=== PATIENT | male | born 1945 | race Caucasian/White ===

== ENCOUNTER → 2017-01-11 13:13 | Outpatient (CLI) | payer MEDICARE, OTHER | END | disposition home or self-care (01) | LOC: D.CT 13:13 | DX: J32.9 Chronic sinusitis, unspecified (principal) ==

== ENCOUNTER 2017-02-23 08:03 | Day surgery (SDC) | payer MEDICARE, OTHER ==
[~2017-02-23] VITALS: Ht 188 cm; Wt 109.1 kg
--- NOTE | ~2017-02-23 | OP ---
PATIENT NAME: BLAKE MICHELLE EDD MEDICAL RECORD: [id number] :45 LOCATION:[facility] ADMISSION DATE: SURGEON: SERGEI CID MD DATE OF OPERATION: 02/23/2017 PREOPERATIVE DIAGNOSES: Right chronic maxillary sinusitis, hypoplastic sinus with refractory sinusitis. POSTOPERATIVE DIAGNOSES: Right chronic maxillary sinusitis, hypoplastic sinus with refractory sinusitis. PROCEDURE: Right middle meatal antrostomy. SURGEON: Sergei Cid MD. ANESTHESIA: General orotracheal. BLOOD LOSS: 2 cc. SPECIMENS: Cultures from the right maxillary sinus. COMPLICATIONS: None. DISPOSITION: Recovery stable. NASAL PACKING: None. DESCRIPTION OF PROCEDURE: He was brought to the operating room and placed in supine position, sedated and intubated by anesthesia. The table was turned 90 degrees. A head drape was applied. He was positioned, prepped and draped in usual fashion for nasal surgery. Using a headlight and nasal speculum, the lateral nasal wall was really severely retracted laterally. The root of the middle turbinate, inferior turbinate and lateral nasal wall, floor of the nose were injected with a total of 1 cc of 1% lidocaine with 1:100,000 epinephrine. Afrin pledgets were placed in the right side of the nose. Then, after waiting for decongestion, all the Afrin pledgets were removed. The left side of the nose was examined first with a 0-degree scope, there are masses, polyps or lesions. Inferior and middle turbinates, nasal vault and nasopharynx were normal. The right side was examined. He had a normal inferior turbinate and then above that, the entire lateral nasal wall was just collapsed completely and then there was normal middle turbinate as well. The nasal vault and nasopharynx were normal. The uncinate was visible and could be moved medially a little bit with a curved olive-tip suction, but I entered the maxillary sinus just above the inferior turbinate to get into the sinus itself again into a plane where, because there was really almost no space there, dissected that open, got some cultures on some purulent secretions and then took down a large portion of that lateral nasal wall, exposing the maxillary sinus. I left some of the uncinate intact and did not disturb any of the sinuses, just opened up that maxillary sinus completely, got in there, rinsed it out repeatedly with a 60 cc syringe and a large curved olive-tip suction. Then, with the field clean and dry, I used a curved olive-tip suction and filled that maxillary sinus inferiorly with mupirocin ointment. I suctioned out the nasopharynx, examined the area again, and he was awakened, extubated, and transported to recovery in good condition. No complications. OPERATIVE REPORT [id number] BLAKE MICHELLE EDD TRANSINT:[id number] Voice Confirmation ID: [id number] DOCUMENT ID: [id number] SERGEI CID MD CC: [id number] DICTATION DATE: 02/23/17 1217 HACK SAW OPERATOR: 02/23/17 1325 REG [facility] [address] [id number]
--- NOTE | ~2017-02-23 | HP ---
PATIENT: BLAKE MICHELLE EDD MEDICAL RECORD: [id number] ACCOUNT: [id number] LOCATION:[facility] : 45 ADMISSION DATE: 02/23/17 HISTORY AND PHYSICAL EXAMINATION Preoperative History and Physical HISTORY OF PRESENT ILLNESS: Blake is a 71-year-old male with chronic right maxillary sinus disease. He is being admitted for right middle meatal antrostomies. PAST MEDICAL HISTORY: Includes reflux. PAST SURGICAL HISTORY: None. CURRENT MEDICATIONS: Orencia, Voltaren, Zantac, Prilosec, and Plaquenil. ALLERGIES: No known drug allergies. PHYSICAL EXAMINATION: GENERAL: Healthy-appearing male. FACE: Normal, symmetric, no lesions. EYES: Sclerae and conjunctivae are normal. EARS: Canals and TMs are normal. NOSE: No mass, polyps or drainage. ORAL CAVITY AND OROPHARYNX: Tongue protrudes in midline. Pharynx normal. NECK: No masses, no adenopathy. CHEST: Clear. CARDIOVASCULAR: Regular rate and rhythm, no murmur. EXTREMITIES: Normal. DIAGNOSTIC DATA: CT shows a hypoplastic right maxillary sinus. IMPRESSION: A hypoplastic right maxillary sinus with chronic sinusitis, refractory to medical management. PLAN: Right middle meatal antrostomy. TRANSINT:[id number] Voice Confirmation ID: [id number] DOCUMENT ID: [id number] CRISTIANA ICD MD CC: [id number] DICTATION DATE: 02/21/17 1355 BSW: 02/21/17 1450 PRE [facility] [address] [place] [address]
[~2017-02-23 08:03] MED LIST: EFFEXOR75 MG PO; NALFON400 MG PO; PLAQUENIL200 MG PO
[2017-02-23 08:47] LABS: HEMATOCRIT 42.1 % (42.0-54.0); HEMOGLOBIN 14.6 g/dL (13.5-17.5); MCHC 34.7 g/dL (31.0-37.0); MCV 97.9 fL (80.0-100.0); MEAN PLATELET VOLUME 10.4 fL (7.4-10.4); RBC 4.3 10x6/uL (4.20-6.10); RDW 13.5 % (11.5-14.5); WBC 5.7 10x3/uL (4.8-10.8)
[2017-02-23] MEDS ORDERED: HYDROCODON-ACE1 EAC7 PO (09:40)
[2017-02-23] MEDS ORDERED: OMEPRAZOLE40 MG PO (09:40)
[2017-02-23] MEDS ORDERED: AMBIEN10 MG PO (09:41)
[2017-02-23] MEDS ORDERED: ZANTAC150 MG PO (09:42)
[2017-02-23] MEDS ORDERED: ORENCIA250 MG/10 IV (09:42)
[2017-02-23] MEDS ORDERED: METAMUCIL PACKE1 PKT PO (09:43)
[2017-02-23] MEDS ORDERED: EZFE 200200 MG PO (09:43)
[2017-02-23] MEDS ORDERED: FLAXSEED OIL1000 MG PO (09:44)
[2017-02-23] MEDS ORDERED: MIRALAX17 GM PO (09:44)
[2017-02-23] MEDS ORDERED: POTASSIUM99 M1 PO (09:44)
[2017-02-23] MEDS ORDERED: VITAMIN B-1000 MCG/M IM (09:45)
[2017-02-23 09:57] VITALS: BP 135/75; Ht 188 cm; Wt 109.1 kg
[2017-02-27 17:12] LABS: AEROBE ID Preliminary report (())
== END 2017-02-23 14:40 | disposition home or self-care (01) ==
LOC: D.OPS 08:03 → D.PAN 10:55 → D.OPS 12:15
PROVIDERS: Anesthesiology; Otolaryngology
DX: J32.0 Chronic maxillary sinusitis (principal); J32.8 Other chronic sinusitis; Z01.812 Encounter for preprocedural laboratory examination

== ENCOUNTER 2018-08-14 11:48 | Outpatient (CLI) | payer MEDICARE, OTHER ==
[~2018-08-14] VITALS: Ht 188 cm; Wt 106.8 kg
--- NOTE | ~2018-08-14 | HEMODYNAMI ---
PATIENT:BLAKE MICHELLE FER MEDICAL RECORD: [id number] : 45 LOCATION:[facility] ADMISSION DATE: 08/14/18 Generatedon:08/14/201814:47 Patient name: BLAKE MICHELLE Patient #: [id number] SSN: : 1945 Date of study: 08/14/2018 Page: Of Hemodynamic Procedure Report Patient Data Patient Demographics Procedure consent was obtained First Name: BLAKE Gender: Male Last Name: VIVIANA : 1945 Middle Initial: FER Age: 73 year(s) Patient #: [id number] Race: Additional ID: [id number] Contact details Address: [facility] [address] State: [place] City: [place] Zip code: [address] Past Medical History Allergies: No known allergies Admission Admission Data Admission Date: 08/14/2018 Admission Time: 11:48 Lab Results Lab Result Date: 08/14/2018 Lab Result Time: 12:15 Biochemistry Name Units Result Min Max BUN mg/dl 11 --(-*--)-- 7 18 Creatinine mg/dl 0.8 --(-*--)-- 0.6 1.3 CBC Name Units Result Min Max Hematocrit % 37.4 *-(----)-- 42 54 Hemoglobin g/dl 12.8 -*(----)-- 13.5 17.5 Procedure Procedure Types Cath Procedure Diagnostic Procedure C [facility] w/Coronaries Aortic Root Angiography Sedation Charges Moderate Sedation up to 30 minutes Procedure Description Procedure Date Procedure Date: 08/14/2018 Procedure Start Time: 14:17 Procedure End Time: 14:46 Procedure Staff Name Function Sergei Stein MD Performing Physician Rupesh Barber RT Monitor Leandra Caro RT Scrub Makenna Way RT Scrub Travis Melgoza RN Nurse Procedure Data Cath Procedure Fluoroscopy Diagnostic fluoroscopy Total fluoroscopy Time: 5.3 time: 5.3 min min Diagnostic fluoroscopy Total fluoroscopy dose: dose: 1195 mGy 1195 mGy Contrast Material Contrast Material Type Amount (ml) Isovue 300 151 Entry Location Entry Primary Successful Side Size Upsize Upsize Entry Closure Succes sful Closure Location (Fr) 1 (Fr) 2 (Fr) Remarks Device Remarks Femoral Right 5 Fr Exoseal artery Estimated blood loss: 5 ml Diagnostic catheters Device Type Used For End Catheter Placement MULTIPACK JL 4.0 5Fr Procedure catheter DIAGNOSTIC JL 5 5Fr Procedure catheter ([id number]) DIAGNOSTIC JL 6 5Fr Procedure catheter ([id number]) MULTIPACK 3DRC 5Fr Procedure catheter MULTIPACK Pigtail 5 Fr Procedure catheter Procedure Complications No complications Procedure Medications Medication Administration Route Dosage 0.9% NaCl I.V. 100 ml/hr Oxygen etCO2 Nasal cannula 2 l/min Heparin Flush Bag added to field 2 bags (1000units/500ml NS) Lidocaine 2% added to field 20 Versed I.V. 1 mg Fentanyl I.V. 50 mcg Versed I.V. 1 mg Fentanyl I.V. 50 mcg Versed I.V. 2 mg Hemodynamics Rest HGB: 12.8 (g/dl) Heart Rate: 61 (bpm) Pressure Samples Time Site Value (mmHg) Purpose Heart Use Rate(bpm) 14:33 LV 133/0,20 Snapshot 62 14:34 AO 129/64(91) Pullback 64 14:34 LV 133/0,17 Pullback 64 Gradients Valve Time Site 1 Site 2 Mean SEP/DFP Peak To Heart Use (mmHg) (sec/min) Peak Rate (mmHg) (bpm) Aortic 14:34 LV AO 7 21 4 64 133/0,17 129/64(91) Calculations Valve P-P Mean Valve Index Valve Source Name Gradient Area Flow (cm2) Aortic 4 7 4 7 Snapshots Pre Cath Intra NCS Post Cath Vital Signs Time Heart Resp SPO2 etCO2 NIBP (mmHg) Rhythm Pain Sedation Rate (ipm) (%) (mmHg) Status Level (bpm) 14:01:24 64 19 95 0 149/87(96) NSR 0 (11) 10(A) , No pain 14:05:43 58 16 97 0 145/83(120) NSR 0 (11) 10(A) , No pain 14:09:57 59 25 94 24 140/85(109) NSR 0 (11) 10(A) , No pain 14:14:10 62 14 94 0 140/84(103) NSR 0 (11) 10(A) , No pain 14:18:24 59 13 98 27 144/83(117) NSR 0 (11) 10(A) , No pain 14:22:41 60 12 97 8.2 140/82(108) NSR 0 (11) 9(A) , No pain 14:26:56 60 14 98 3 142/80(112) NSR 0 (11) 9(A) , No pain 14:31:12 65 14 97 27 139/80(112) NSR 0 (11) 9(A) , No pain 14:35:28 61 14 97 10.5 140/77(104) NSR 0 (11) 9(A) , No pain 14:39:45 60 15 98 21.7 136/78(107) NSR 0 (11) 9(A) , No pain 14:43:56 56 15 98 27.7 137/84(99) NSR 0 (11) 10(A) , No pain Medications Time Medication Route Dose Verified Delivered Reason Notes Eff ectiveness by by 14:07:26 0.9% NaCl I.V. 100 Travis Travis Per ml/hr Abad Melgoza physician RN RN 14:07:36 Oxygen etCO2 2 Travis Travis for low 02 Nasal l/min Lorigan Lorigan sats cannula RN RN 14:07:47 Heparin Flush added 2 Travis Travis used for Bag to bags Lorigan Lorigan procedure (1000units/500ml field RN RN NS) 14:07:58 Lidocaine 2% added 20ml Travis Travis for local to vial Lorigan Lorigan anesthetic field RN RN 14:08:09 Versed I.V. 1 mg Travis Travis for Lorigan Lorigan sedation RN RN 14:08:19 Fentanyl I.V. 50 Travis Travis for mcg Lorigan Lorigan sedation RN RN 14:14:28 Versed I.V. 1 mg Travis Travis for Lorigan Lorigan sedation RN RN 14:14:34 Fentanyl I.V. 50 Travis Travis for mcg Lorigan Lorigan sedation RN RN 14:17:29 Versed I.V. 2 mg Travis Travis for Lorigan Lorigan sedation RN user experience manager Log Time Note 13:47:24 Informed consent obtained and on chart 13:48:37 Diagnostic Cath Status : Elective 13:49:05 Rupesh Roer RT(R) sent for patient. Start room use. 13:49:07 Time tracking: Regular hours (M-F 7:00 - 5:00) 13:49:11 Plan of Care:Hemodynamics will remain stable., Cardiac rhythm will remain stable., Comfort level will be maintained., Respiratory function will remain adequate., Patient/ family verbilizes understanding of procedure., Procedure tolerated without complication., Recovers from procedure without complications.. 13:56:19 Patient received from Pre/Post Procedure Room to CCL 2 Alert and oriented. Tansferred to table in Supine position. 13:56:21 Warm blankets applied, and ilene hugger turned on for patient comfort. 13:56:21 Correct patient and procedure confirmed by team. 13:56:24 ECG and BP/O2 sat monitors applied to patient. 14:00:12 Lab Result : BUN 11 mg/dl 14:00:12 Lab Result : Creatinine 0.8 mg/dl 14:00:13 Lab Result : Hemoglobin 12.8 g/dl 14:00:13 Lab Result : Hematocrit 37.4 % 14:00:14 Lab results completed and on chart. 14:00:18 Vital chart was started 14:00:21 Baseline sample Acquired. 14:00:24 Rhythm: sinus rhythm 14:00:25 Full Disclosure recording started 14:00:33 H&P Date Dictated: 08/09/2018 Within 30 days and on chart., H&P Addendum completed by physician on day of procedure. (MUST COMPLETE FOR ALL OUTPATIENTS). 14:00:35 Pre-procedure instructions explained to patient. 14:00:35 Pre-op teaching completed and patient verbalized understanding. 14:00:36 Family in waiting room. 14:00:36 Patient NPO since Midnight. 14:00:40 Patient allergic to No known allergies 14:00:41 Is the patient allergic to Iodine/contrast media? No. 14:00:42 Is patient on blood thinner?No 14:00:43 Patient diabetic? No. 14:01:18 Previous problem with sedation/anesthesia? No ? 14:01:20 Snore? No 14:01:21 Sleep apnea? No 14:01:21 Deviated septum? No 14:01:22 Opens mouth fully? Yes 14:01:23 Sticks out tongue? Yes 14:01:25 Airway obstruction? No ? 14:01:27 Dentures? No ? 14:03:08 Pre procedure: right dorsailis pedis pulse 2+ Normal; easily identifiable; not easily obliterated 14:03:11 Pre procedure: left dorsailis pedis pulse 2+ Normal; easily identifiable; not easily obliterated 14:03:12 Patient pain scale 0/10 ?. 14:03:20 IV patent on arrival in left forearm with 0.9% NaCl at [facility]. 14:03:24 Right groin area was prepped with chlora-prep and draped in sterile fashion 14:03:25 Alarms reviewed by R. N. 14:03:25 Sharps counted by scrub and verified by R.N. 14:03:27 Use device set Femoral Dx 14:03:28 ACIST Syringe (24260) opened to sterile field. 14:03:28 Bag Decanter (2002S) opened to sterile field. 14:03:29 Medline Cath Pack ([id number]) opened to sterile field. 14:03:30 ACIST Hand Control (58004) opened to sterile field. 14:03:30 ACIST Manifold (24867) opened to sterile field. 14:03:31 Tegaderm 4 x 4 (1626W) opened to sterile field. 14:03:35 SHEATH 5FR [place] (IZQ686) opened to sterile field. 14:03:36 DIAGNOSTIC WIRE .035 260cm J wire (834642) opened to sterile field. 14:03:36 DIAGNOSTIC Multipack 5Fr catheter set (OH6208) opened to sterile field. 14:03:48 Baseline sample Acquired. 14:03:51 Physician arrived 14:03:51 --------ALL STOP TIME OUT------ 14:03:51 Final Timeout: patient, procedure, and site verified with staff and physician. All members of the team are in agreement. 14:03:53 Right groin site verified by team. 14:03:57 Fire Safety Assessment: A--An alcohol-based skin anteseptic being used preoperatively., C--Open oxygen or nitrous oxide is being used., D--An ESU, laser, or fiber-optic light is being used. 14:04:00 Physical assessment completed. ASA score P 2 - A patient with mild systemic disease as per Sergei Stein MD. 14:04:02 Sedation plan: IV Moderate Sedation Medication:Versed, Fentanyl 14:07:26 0.9% NaCl 100 ml/hr I.V. was administered by Travis Melgoza RN; Per physician; 14:07:36 Oxygen 2 l/min etCO2 Nasal cannula was administered by Travis Melgoza RN; for low 02 sats; 14:07:47 Heparin Flush Bag (1000units/500ml NS) 2 bags added to field was administered by Travis Melgzoa RN; used for procedure; 14:07:58 Lidocaine 2% 20ml vial added to field was administered by Tarvis Melgoza RN; for local anesthetic; 14:08:09 Versed 1 mg I.V. was administered by Travis Melgoza RN; for sedation; 14:08:19 Fentanyl 50 mcg I.V. was administered by Travis Melgoza RN; for sedation; 14:14:28 Versed 1 mg I.V. was administered by Travis Melgoza RN; for sedation; 14:14:34 Fentanyl 50 mcg I.V. was administered by Travis Melgoza RN; for sedation; 14:17:27 Procedure started. 14:17:29 Versed 2 mg I.V. was administered by Travis Melgoza RN; for sedation; 14:17:30 Local anesthetic to right femoral artery with Lidocaine 2% by Sergei Stein MD.INITIAL ACCESS ONLY 14:17:49 A 5 Fr sheath was inserted into the Right Femoral artery 14:17:53 Zero performed for pressure channel P1 14:20:31 A MULTIPACK JL 4.0 5Fr catheter was advanced over the wire and used for Procedure. 14:20:34 Catheter exchanged over wire. 14:21:04 A DIAGNOSTIC JL 5 5Fr catheter ([id number]) was advanced over the wire and used for Procedure. 14:22:40 Catheter exchanged over wire. 14:22:50 A DIAGNOSTIC JL 6 5Fr catheter ([id number]) was advanced over the wire and used for Procedure. 14:24:51 LCA angiography performed. 14:26:52 Catheter exchanged over wire. 14:27:02 A MULTIPACK 3DRC 5Fr catheter was advanced over the wire and used for Procedure. 14:29:51 RCA angiography performed. 14:30:41 Catheter exchanged over wire. 14:30:56 A MULTIPACK Pigtail 5 Fr catheter was advanced over the wire and used for Procedure. 14:33:53 LV gram done using RAMACHANDRAN 14:33:56 Injector settings: Ml/sec: 10, Volume: 20, 14:33:57 LV hemodynamics recorded. 14:34:20 EF : 45 % 14:34:41 Aortic Root visualized 14:39:06 Catheter removed. 14:39:45 EXOSEAL 5Fr (EX500) opened to sterile field. 14:39:52 Sheath removed intact; hemostasis achieved with Exoseal to the Right Femoral artery. 14:39:54 Procedure ended.(Physican Out) 14:41:07 Fluoroscopy time 05.30 minutes. 14:41:10 Fluoroscopy dose: 1195 mGy 14:41:10 Flurop Dose total: 1195 14:41:30 Contrast amount:Isovue 300 151ml. 14:41:32 Sharps counted by scrub and verified by R.N. 14:41:33 Insertion/operative site no bleeding no hematoma. 14:41:38 Post-op/insertion site Right Femoral artery dressed using a 4 x 4 and Tegaderm. 14:41:41 Post right femoral artery:stable, soft, clean and dry 14:41:42 Post Procedure Pulses reassessed and unchanged 14:43:49 Post-procedure physical assessment completed. ASA score P 2 - A patient with mild systemic disease as per Sergei Stein MD. 14:43:52 Post procedure rhythm: unchanged. 14:43:55 Estimated blood loss: 5 ml 14:43:57 Post procedure instruction explained to patient.Patient verbalizes understanding. 14:44:12 Patient needs reinforcement of post procedure teaching. 14:44:36 Procedure type changed to Cath procedure, Diagnostic procedure, LHC, LHC w/Coronaries, Aortic Root Angiography, Sedation Charges, Moderate Sedation up to 30 minutes 14:46:12 Procedure and supply charges have been captured, reviewed, submitted and are correct. 14:46:14 Procedure Complication : No complications 14:46:15 Vital chart was stopped 14:46:15 See physician's report for complete and final results. 14:46:17 Report given to Pre/Post Procedure Room. 14:46:19 Patient transfered to Pre/Post Procedure Room with Stretcher. 14:46:20 Procedure ended. 14:46:20 Full Disclosure recording stopped 14:46:25 End room use (Document Last) Device Usage Item Name Manufacture Quantity Catalog Hospital Part Current Minimal L ot# / Number Charge Number Stock Stock Serial# Code ACKARMEN Acist 1 60229 [id number] 674620 650848 20 Syringe Medical (37110) Systems Inc Bag Microtek 1 2001S 067789 27556 105896 5 Decanter Medical Inc. () Medline Medline 1 [id number] 881222 26096 713469 5 Cath Pack ([id number]) ACIST Hand Acist 1 30120 583978 781959 259429 5 Control Medical (81139) Systems Inc ACIST Acist 1 68349 055405 787767 003680 5 Manifold Medical (12785) Systems Inc Tegaderm 4 3M 1 1626W 416128 733258 718495 5 x 4 (1626W) SHEATH 5FR Terumo 1 [id number] 438530 690184 237778 5 [place] (SUC534) DIAGNOSTIC [place] 1 249864 345009 248658 374447 30 WIRE .035 260cm J wire (797155) DIAGNOSTIC Cardinal 1 LW4717 430336 25646 315459 30 Multipack Health 5Fr catheter set (IX1610) MULTIPACK Cardinal 1 503740 5 JL 4.0 5Fr Health catheter DIAGNOSTIC Cardinal 1 [id number] 223806 766697 521713 5 JL 5 5Fr Health catheter (820396T) DIAGNOSTIC Cardinal 1 [id number] 488634 707805 787240 5 JL 6 5Fr Health catheter (940172X) MULTIPACK Cardinal 1 568027 5 3DRC 5Fr Health catheter MULTIPACK Cardinal 1 789844 5 Pigtail 5 Health Fr catheter EXOSEAL 5Fr Cardinal 1 EX500 198264 929992 727854 10 (EX500) Health Signature Audit [place] Stage Time Signature Unsigned Intra-Procedure 08/14/2018 Rupesh Barber 2:47:14 PM RT(R) Signatures Monitor : Rupesh Barber RT Signature : Date : Time : [address] [address]
[~2018-08-14 11:48] MED LIST changes: +AMBIEN10 MG PO; +EZFE 200200 MG PO; +FLAXSEED OIL1000 MG PO; +HYDROCODON-ACE1 EAC7 PO; +METAMUCIL PACKE1 PKT PO; +MIRALAX17 GM PO; +OMEPRAZOLE40 MG PO; +ORENCIA250 MG/10 IV; +POTASSIUM99 M1 PO; +VITAMIN B-1000 MCG/M IM; +ZANTAC150 MG PO
[2018-08-14 12:26] VITALS: BP 154/77; Ht 188 cm; Wt 106.8 kg
[2018-08-14 12:29] LABS: BASOPHILS 0.7 % (0-2); EOSINOPHILS 4.4 % (0-7); HEMATOCRIT 37.4 % (42.0-54.0); HEMOGLOBIN 12.8 g/dL (13.5-17.5); IMMATURE GRANULOCYTES 0.2 % (0-5); LYMPHOCYTES 32.1 % (15-50); MCH 33.6 pg (26.0-34.0); MCHC 34.2 g/dL (31.0-37.0); MCV 98.2 fL (80.0-100.0); MEAN PLATELET VOLUME 10.1 fL (7.4-10.4); MONOCYTES 13.5 % (2-11); NEUTROPHILS 49.1 % (40-80); PLATELET COUNT 141 10x3/uL (130-400); RBC 3.81 10x6/uL (4.20-6.10); RDW 13.6 % (11.5-14.5); WBC 5.5 10x3/uL (4.8-10.8)
[2018-08-14 12:35] LABS: CALC OSMOLALITY 283 mosm/kg (275-300); CALCIUM 8.6 mg/dL (8.5-10.1); CARBON DIOXIDE 23.9 mmol/L (21.0-32.0); CHLORIDE - SERUM 107 mmol/L (98-107); CREATININE - SERUM 0.8 mg/dL (0.6-1.3); GLUCOSE 99 mg/dL (74-106); SODIUM 143 mmol/L (136-145); UREA NITROGEN 11 mg/dL (7-18); eGFR NON AFRICAN AMERICAN > 90 mL/min (90-120)
--- NOTE | 2018-08-14 15:15 | NUR ---
PATIENT RESTING, WAKES TO VERBAL STIMULI. VSS ON 2L NC. RIGHT GROIN DRESSING IS CDI, NO S/S OF BLEEDING OR HEMATOMA. NO C/O PAIN, NUMBNESS, OR TINGLING.
--- NOTE | 2018-08-14 15:45 | NUR ---
PATIENT RESTING, VSS ON ROOM AIR. RIGHT GROIN DRESSING IS CDI, NO S/S OF BLEEDING OR HEMATOMA.
--- NOTE | 2018-08-14 16:15 | NUR ---
PATIENT AWAKE, HEAD OF BED ELEVATED TO 30 DEGREES. RIGHT GROIN DRESSING IS CDI, NO S/S OF BLEEDING OR HEMATOMA. NO C/O PAIN, NUMBNESS, OR TINGLING. PATIENT TOLERATING PO FLUIDS. VSS ON ROOM AIR.
--- NOTE | 2018-08-14 16:45 | NUR ---
EDUCATION REGARDING DISCHARGE INSTRUCTIONS AND FOLLOW UP GIVEN TO PATIENT AND SON, ALL QUESTIONS ANSWERED, PATIENT VOICES UNDERSTANDING. VSS ON ROOM AIR. HEAD OF BED AT 90 DEGREES, RIGHT GROIN DRESSING IS CDI, NO S/S OF BLEEDING OR HEMATOMA. IV REMOVED.
--- NOTE | 2018-08-14 16:55 | NUR ---
PATIENT VOIDED WITH NO DIFFICULTY. PATIENT TRANSPORTED VIA WHEELCHAIR TO CAR WITH FAMILY DRIVING, ALL BELONGINGS SENT WITH PATIENT.
== END 2018-08-14 16:55 ==
LOC: D.CATH 11:48
PROVIDERS: ATTEND Internal Medicine Cardiovascular Disease
DX: I25.119 Atherosclerotic heart disease of native coronary artery with unspecified angina pectoris (principal); I35.1 Nonrheumatic aortic (valve) insufficiency; Z01.812 Encounter for preprocedural laboratory examination

== ENCOUNTER → 2018-08-19 11:37 | Outpatient (CLI) | payer MEDICARE, OTHER ==
[2018-08-14 12:26] VITALS: BMI 30.2
[~2018-08-19 11:37] MED LIST changes: +IRON PO
== END | disposition home or self-care (01) ==
LOC: D.CT 11:37
PROVIDERS: ATTEND Thoracic Surgery (Cardiothoracic Vascular Surgery)
DX: I71.4 Abdominal aortic aneurysm, without rupture (principal)

== ENCOUNTER 2018-08-20 07:00 | Inpatient (IN) | payer MEDICARE, OTHER ==
[~2018-08-20] VITALS: Ht 188 cm; Wt 106.1 kg
[~2018-08-20 07:00] MED LIST changes: -IRON PO
[2018-08-20 09:23] LABS: BASOPHILS 0.7 % (0-2); EOSINOPHILS 6.9 % (0-7); HEMATOCRIT 38.2 % (42.0-54.0); IMMATURE GRANULOCYTES 0.2 % (0-5); LYMPHOCYTES 33.2 % (15-50); MCH 33.8 pg (26.0-34.0); MCV 99.2 fL (80.0-100.0); MEAN PLATELET VOLUME 10.2 fL (7.4-10.4); PLATELET COUNT 164 10x3/uL (130-400); RBC 3.85 10x6/uL (4.20-6.10); RDW 13.8 % (11.5-14.5); WBC 5.7 10x3/uL (4.8-10.8)
[2018-08-20 09:29] LABS: APPEARANCE CLEAR (CLEAR); BILIRUBIN NEGATIVE (NEGATIVE); COLOR YELLOW (YELLOW); GLUCOSE NEGATIVE (NEGATIVE); KETONE NEGATIVE (NEGATIVE); NITRITE NEGATIVE (NEGATIVE); PROTEIN NEGATIVE (NEGATIVE); UROBILINOGEN NORMAL (NORMAL)
[2018-08-20 09:36] LABS: APTT 27.2 SECONDS (22.8-39.4); INR 1.03 (0.85-1.17)
[2018-08-20] MEDS ORDERED: IRON PO (09:38)
[2018-08-20 09:49] LABS: ALBUMIN 3.8 g/dL (3.4-5.0); ALKALINE PHOSPHATASE 56 U/L (46-116); ALT (SGPT) 28 U/L (10-68); BILIRUBIN - TOTAL 0.61 mg/dL (0.2-1.3); CALC OSMOLALITY 279 mosm/kg (275-300); CALCIUM 8.5 mg/dL (8.5-10.1); CARBON DIOXIDE 25.9 mmol/L (21.0-32.0); CHLORIDE - SERUM 105 mmol/L (98-107); CHOLESTEROL, TOTAL 156 mg/dL (0-200); CREATININE - SERUM 0.8 mg/dL (0.6-1.3); GLUCOSE 95 mg/dL (74-106); PHOSPHOROUS 3.1 mg/dL (2.5-4.9); POTASSIUM - SERUM 4.5 mmol/L (3.5-5.1); PROTEIN - SERUM 6.9 g/dL (6.4-8.2); SODIUM 141 mmol/L (136-145); T4 THYROXIN - FREE 0.96 ng/dL (0.76-1.46); THYROID STIMULATING HORMONE 2.38 uIU/mL (0.36-3.74); UREA NITROGEN 11 mg/dL (7-18); URIC ACID 4.2 mg/dL (2.6-7.2); eGFR NON AFRICAN AMERICAN > 90 mL/min (90-120)
[2018-08-22] VITALS (30 sets, daily range): BP systolic 90–144; BP diastolic 44–72; BMI 31.5; BMI 29.9
--- NOTE | 2018-08-22 13:17 | NUR ---
PT ARRIVED TO UNIT FROM O.R. INTUBATED. 8.5 ETT, 25 @LIP. ON PLASMALYTE AND TRICE. MIDSTERNAL DRESSING C,D,I. SUBSTERNAL DRESSING OVER CHEST TUBE X2 AND LUCAS DRAIN. TPM WIRES X2. UNIT TURNED OFF. RIGHT LEG HARVEST SITES COVERED WITH GAUZE AND KERLEX DRESSING. PALPABLE PULSES. MAYELA AND SCD TO LEFT LEG. CRITICORE VILLASENOR IN USE. RIGHT RADIAL ART LINE. RIGHT IJ CENTRAL LINE. CORDIS IS CAPPED. CVP MONITORING.
--- NOTE | 2018-08-22 14:58 | NUR ---
PT STARTING TO WAKE. OPENS EYES. FOLLOWS COMMANDS. NODS HEAD UP AND DOWN TO ACKNOWLEDGE UNDERSTANDS WHAT I AM TELLING HIM. MOVES ALL LIMBS. NO DISTRESS.
--- NOTE | 2018-08-22 15:00 | NUR ---
PT PLACED ON SIMV ON VENT SETTING.
--- NOTE | 2018-08-22 15:48 | NUR ---
PT CHANGED TO CPAP (SPONT) ON VENT.
--- NOTE | 2018-08-22 16:16 | NUR ---
SON AND BROTHER AT BEDSIDE. UPDATED TO PT PROGRESS. PLAN TO EXTUBATE SOON. PT OPENS EYES TO SPEECH. FOLLOWS COMMANDS. RECOGNIZES FAMILY.
--- NOTE | 2018-08-22 16:28 | NUR ---
PT PASSES NIF & VITAL. PLAN TO EXTUBATE.
--- NOTE | 2018-08-22 16:42 | NUR ---
NITRO GTT STARTED.
--- NOTE | 2018-08-22 17:12 | NUR ---
MORPHINE HAS BEEN GIVEN FOR PAIN. PT GIVEN "HEART" PILLOW. EXPLAINED SPLINTING TO PT AND SON AND ENCOURAGED PT TO COUGH.
--- NOTE | 2018-08-22 18:01 | NUR ---
PT GIVEN PERCOCET FOR PAIN. CANNOT GET COMFORTABLE. HAVE CHANGED POSITION MULTIPLE TIMES. FEELS "CRAMPING" IN HIS UPPER ABDOMEN/LOWER CHEST. TOLERATING ICE CHIPS AND WATER WITH NO DIFFICULTY. NO C/O NAUSEA.
--- NOTE | 2018-08-22 19:11 | NUR ---
REPORT RECEIVED, SHIFT ASSESSMENT COMPLETED PER FLOW SHEET. AAOX4. PPP. X2 SUBSTERNAL CT TO 20 CM SUCTION, NO AIR LEAK. X1 SUBSTERNAL CT TO LUCAS DRAIN, COMPRESSED, BLOODY OUTPUT NOTED. VILLASENOR CATHETER TO GRAVITY SECURED. SUBSTERNAL TPM WIRES SECURED, CONNECTED TO TPM, NOT TURNED ON. RT ARTERIAL LINE AND CVP LINE LEVELED AND ZEROED WITH GOOD WAVEFORM. WATER PROVIDED, NO DYSPHAGIA. SEE FLOW SHEET FOR COMPLETE ASSESSMENT. WILL CONTINUE TO MONITOR. CALL LIGHT WITHIN REACH.
--- NOTE | 2018-08-22 19:42 | NUR ---
C/O INCISIONAL PAIN PRN MORPHINE GIVEN, SEE EMAR FOR DETAILS. WILL CONTINUE TO MONITOR.
--- NOTE | 2018-08-22 20:05 | NUR ---
TAMMIE VELÁZQUEZ AT BEDSIDE. UPDATE GIVEN. QUESTIONS ANSWERED. PATIENT CALM. WILL CONTINUE TO MONITOR.
--- NOTE | 2018-08-22 21:02 | NUR ---
SCHEDULED MEDS GIVEN, WATER PROVIDED, NO DYSPHAGIA. DENIES NEEDS. COUGH WEAK, NON-PRODUCTIVE. PULLING 500-750 ON IS. WILL CONTINUE TO MONITOR.
--- NOTE | 2018-08-22 23:01 | NUR ---
REASSESSMENT COMPLETED PER FLOW SHEET, SEE FOR DETAILS. NO ACUTE DISTRESS NOTED. WATER WITH ICE PROVIDED PER PATIENT'S REQUEST. TOLERATING CLEAR LIQUIDS WELL. DENIES OTHER NEEDS. WILL CONTINUE TO MONITOR. CALL LIGHT WITHIN REACH.
[2018-08-23] VITALS (40 sets, daily range): BP systolic 85–138; BP diastolic 45–86
--- NOTE | 2018-08-23 01:00 | NUR ---
SUBSTERNAL DRESSING CHANGED. X2 TPM WIRES INTACT. LT CT LUCAS DRAIN EMPTIED USING STERILE TECHNIQUE, 70 MLS BLOODY OUTPUT. TOLERATED WELL. CALL LIGHT WITHIN REACH. WILL CONTINUE TO MONITOR.
--- NOTE | 2018-08-23 03:01 | NUR ---
REASSESSMENT COMPLETED PER FLOW SHEET, SEE FOR DETAILS. NO ACUTE DISTRESS NOTED. WILL CONTINUE TO MONITOR.
--- NOTE | 2018-08-23 05:00 | NUR ---
BED BATH GIVEN, VILLASENOR CARE PROVIDED. TOLERATED WELL. PULLING 500-750 ON IS. COUGH WEAK, NON-PRODUCTIVE. WILL CONTINUE TO MONITOR.
[2018-08-23 06:10] LABS: HEMATOCRIT 34.7 % (42.0-54.0); HEMOGLOBIN 11.7 g/dL (13.5-17.5); MCH 33.1 pg (26.0-34.0); MCHC 33.7 g/dL (31.0-37.0); MEAN PLATELET VOLUME 10.2 fL (7.4-10.4); RBC 3.54 10x6/uL (4.20-6.10); WBC 9.9 10x3/uL (4.8-10.8)
[2018-08-23 06:34] LABS: ALBUMIN 3.1 g/dL (3.4-5.0); ALKALINE PHOSPHATASE 29 U/L (46-116); ALT (SGPT) 31 U/L (10-68); BILIRUBIN - TOTAL 0.92 mg/dL (0.2-1.3); CALC OSMOLALITY 286 mosm/kg (275-300); CALCIUM 7.3 mg/dL (8.5-10.1); CARBON DIOXIDE 24.7 mmol/L (21.0-32.0); CHLORIDE - SERUM 107 mmol/L (98-107); CREATININE - SERUM 0.8 mg/dL (0.6-1.3); GLUCOSE 162 mg/dL (74-106); POTASSIUM - SERUM 4.1 mmol/L (3.5-5.1); PROTEIN - SERUM 5.3 g/dL (6.4-8.2); SODIUM 142 mmol/L (136-145); UREA NITROGEN 12 mg/dL (7-18); eGFR NON AFRICAN AMERICAN > 90 mL/min (90-120)
--- NOTE | 2018-08-23 07:01 | NUR ---
CALLED AND SPOKE TO DR. PIERCE, UPDATE GIVEN ON PATIENT STATUS. INFORMED HIM OF LOW BP WHEN PATIENT GOT UP TO SIT UP IN CHAIR, INFORMED HIM OF INITIATION OF NEOSYNEPHRINE DRIP. NO NEW ORDERS RECEIVED. WILL CONTINUE TO MONITOR.
--- NOTE | 2018-08-23 09:00 | NUR ---
0830: DR. PIERCE HERE. CONDITION UPDATE GIVEN. ORDERS REC'D TO DC ART LINE. 0900: R RADIAL ART LINE DC'D. MANUAL PRESSURE HELD X 2 MIN. DRESSED WITH 2X2 AND SECURED WITH TAPE.
--- NOTE | 2018-08-23 13:01 | NUR ---
REPORT RECIEVED, PRN PERCOCET FOR INCISIONAL PAIN, WILL CONTINUE TO MONITOR
--- NOTE | 2018-08-23 15:00 | NUR ---
PT WEANED OFF TRICE.
--- NOTE | 2018-08-23 17:54 | OP ---
PATIENT NAME: BLAKE MICHELLE EDD MEDICAL RECORD: [id number] :45 LOCATION:D.CVI D.CV03 ADMISSION DATE:08/22/18 SURGEON: SEBASTIAN PIERCE MD DATE OF OPERATION: 08/22/2018 SURGEON: Sebastian Pierce MD CROSSBAR FRAME WIRER: XENA Mckeon MD and Kunal Santacruz OPERATION PERFORMED: 1. Coronary artery bypass graft times 3 (left internal mammary artery to LAD, reverse saphenous vein graft from aorta to diagonal, aorta to obtuse marginal). 2. Endoscopic saphenous vein harvest. PREOPERATIVE DIAGNOSES: Coronary artery disease, aortic insufficiency, mitral regurgitation, ascending aortic aneurysm. POSTOPERATIVE DIAGNOSES: Coronary artery disease, aortic insufficiency, mitral regurgitation, ascending aortic aneurysm. ANESTHESIA: General endotracheal anesthesia. ESTIMATED BLOOD LOSS: Total cardiopulmonary bypass with Cell Saver retransfusion. COMPLICATIONS: None. SPECIMENS: None. CONDITION: Stable. DISPOSITION: CV ICU. OPERATIVE FINDINGS: 1. Transesophageal echocardiography confirmed mild 1+ aortic insufficiency, 1+ mitral regurgitation and a slightly dilated left ventricular cavity with good global contractility. This was the same after separation from cardiopulmonary bypass. 2. Ascending aorta of 4.5 cm. The wall thickness was normal. 3. Good quality greater saphenous vein harvested from the right leg endoscopically. 4. Good quality left internal mammary artery. The LAD was deeply intramyocardial until near the distal point where it was a 1.5-mm vessel going distally, but a 2.0-mm vessel proximally. There was good Doppler signal after anastomosis and after reversal of heparin. 5. The diagonal was a bifurcating vessel. The larger vessel was closer to the LAD. It was a 1.5-mm vessel. 6. Obtuse marginal of 2.0. OPERATIVE INDICATION: Coronary artery disease, unstable angina. DESCRIPTION OF PROCEDURE: The patient was brought to the operating suite. General anesthesia was obtained, the patient was prepped and draped. Greater saphenous vein was harvested from the right lower extremity utilizing endoscopic technique. Side branches were divided with electrocautery. The vessel was OPERATIVE REPORT [id number] BLAKE MICHELLE EDD ligated proximal and distal and removed. Side branches were clipped. This portion of the procedure was performed by the personal assistant surgeon, Dr. Mckeon. Side branches were tied and thin sites were oversewn. Utilization of personal assistant surgeon saved approximately 30 minutes of general anesthesia time, later the leg was closed in 2 layers and wrapped with elastic wrap. Medial sternotomy incision was made. The subcutaneous tissue was divided by electrocautery. Sternum was divided with a saw. The left hemisternum was elevated. Left pleural cavity was entered. Left internal mammary artery and vein was taken as a pedicle graft. Sternal retractor was placed. Pericardium was opened. Heparin was given. The aorta was cannulated. Dual stage venous cannula was inserted. Internal mammary was made ready for anastomosis. The patient was placed on cardiopulmonary bypass. Sites for distal aspects were selected. The patient's temperature was allowed to drift. Antegrade cardioplegia cannula was inserted. Crossclamp was placed. Cardioplegia was given antegrade and this was repeated at 15 to 20 minute intervals including down the completed vein grafts. Distal anastomoses were performed in standard technique. Proximal anastomosis with single cross-clamp technique. Aortic root was de-aired. Proximal anastomoses tied down. Vein grafts de-aired, flow restored single successful proximal anastomotic site bleeding. Proximal and distal anastomotic sites inspected for bleeding. Initially, the patient had bradycardia and then resumed to a sinus rhythm and after full rewarming. Atrial and ventricular pacing wires were placed. Left chest was evacuated. The patient was fully rewarmed with cardiopulmonary bypass and was stable. The patient was decannulated. The cannula sites were oversewn with pledgeted Prolene sutures. Protamine was given. Thorough irrigation was undertaken. Hemostasis was assured. All grafts lay appropriately. Drains were placed in the mediastinum and left pleural cavity. Pericardial fat was loosely reapproximated. Left chest was inspected for bleeding. Sternum was closed with wires. Fascia was closed. Subcutaneous tissue was closed. Skin was closed. Dermabond was placed. The needle and sponge counts reported as correct. The patient was taken to ICU in stable condition. TRANSINT:[id number] Voice Confirmation ID: [id number] DOCUMENT ID: [id number] SEBASTIAN PIERCE MD at 175 CC: KAMLA DELGADO M.D. and KAMLA ESPINAL [id number] DICTATION DATE: 08/23/18812 SALES PROJECT ENGINEER: 08/23/18930 ADM IN [facility] [address] [place] [address]
--- NOTE | 2018-08-23 17:59 | NUR ---
ctx2 removed by dr cohen, tpm detached and tpm wires coiled to chest under dressing
--- NOTE | 2018-08-23 18:33 | MORECARE ---
CASE MANAGEMENT DISCHARGE SUMMARY PATIENT: BLAKE MICHELLE FER UNIT: [id number] ADM DATE: 08/22/18 AGE: 73 : 45 SEX: M [facility] AUTHOR: DEONTE MCKENZIE PHYSICIAN: REFERRING PHYSICIAN: VANESSA PIERCE MD DATE OF SERVICE: 08/23/18 Discharge Plan Patient Name: BLAKE MICHELLE [facility] : 1945 Planned Disposition: Home Anticipated Discharge Date: Discharge Date: Expected LOS: Initial Reviewer: [email or web address] Initial Review Date: 08/23/2018 Generated: 08/23/18 7:33 pm DCPIA - Discharge Planning Initial Assessment Updated by [email or web address]: Yvonne Del Rio on 08/23/18 6:33 pm * Is the patient Alert and Oriented? Yes * How many steps to enter\exit or inside your home? * PCP PRYDEINIG * Pharmacy [facility] * Preadmission Environment Home with Family * ADLs Independent * Equipment Cane * Other Equipment GRAB BARS IN BATH ROOM * List name and contact numbers for known caregivers / representatives who currently or will assist patient after discharge: YOLA MICHELLE - BROTHER - [phone] EBER MICHELLE - SON - [phone] ANJANA FARAZ - FRIEND- [phone] * Verbal permission to speak to the caregivers and representatives has been obtained from the patient. No * Community resources currently utilized None * Additional services required to return to the preadmission environment? No * Can the patient safely return to the preadmission environment? Yes * Has this patient been hospitalized within the prior 30 days at any hospital? No Patient Name: BLAKE MICHELLE Page [phone] at 1833 All edits/amendments must be made on the electronic document DICTATION DATE: 08/23/181832 PSYCHIATRIC NURSE PRACTITIONER: ADAM 08/23/181832 RPT#: [id number] DC DATE: STATUS: ADM IN [facility] [address] [place] [address] END OF REPORT
--- NOTE | 2018-08-23 18:42 | MORECARE ---
CASE MANAGEMENT DISCHARGE SUMMARY PATIENT: BLAKE MICHELLE FER UNIT: [id number] ADM DATE: 08/22/18 AGE: 73 : 45 SEX: M ROOM/BED: D.[facility] AUTHOR: JONAH,DOC PHYSICIAN: REFERRING PHYSICIAN: VANESSA PIERCE MD DATE OF SERVICE: 08/23/18 Discharge Plan Patient Name: BLAKE MICHELLE Facility: [facility]:[place] : 1945 Planned Disposition: Home Anticipated Discharge Date: Discharge Date: Expected LOS: Initial Reviewer: [email or web address] Initial Review Date: 08/23/2018 Generated: 08/23/18 7:42 pm Comments DCP- Discharge Planning Updated by [email or web address]: Yvonne Del Rio on 08/23/18 5:[address] Patient Name: BLAKE MICHELLE Admission Status: Urgent Accout number: [id number] Admission Date: 08-22-2018 : 1945 Admission Diagnosis:ATHSCL HEART DISEASE OF [place] CORONARY ARTERY W/O ANG Attending: VANESSA PIERCE Current LOS: 1 Anticipated DC Date: Planned Disposition: Home Primary Insurance: MEDICARE A & B Discharge Planning Comments: CM met with patient at bedside after obtaining verbal consent. Patient states he plans on returning home after discharge with his son. Patient states he will have family transport him home via private vehicle. Patient denies any discharge needs at this time. Patient may need walk test if still requiring 02. CM will continue to follow and assist as needed for discharge planning / needs. Vest Finisher: Yvonne Del Rio DCPIA - Discharge Planning Initial Assessment Updated by [email or web address]: Yvonne Del Rio on 08/23/18 6:33 pm * Is the patient Alert and Oriented? Yes * How many steps to enter\exit or inside your home? * PCP * Pharmacy [facility] * Preadmission Environment Home with Family * ADLs Independent * Equipment Cane * Other Equipment GRAB BARS IN BATH ROOM * List name and contact numbers for known caregivers / representatives who currently or will assist patient after discharge: YOAL MICHELLE - BROTHER - [phone] EBER MICHELLE - SON - [phone] ANJANA FARAZ - FRIEND- [phone] * Verbal permission to speak to the caregivers and representatives has been obtained from the patient. No * Community resources currently utilized None * Additional services required to return to the preadmission environment? No * Can the patient safely return to the preadmission environment? Yes * Has this patient been hospitalized within the prior 30 days at any hospital? No Last DP export: 08/23/18 5:33 pm Patient Name: BLAKE MICHELLE Page [phone] at 1842 All edits/amendments must be made on the electronic document DICTATION DATE: 08/23/181841 PLATE SETTER: ADAM 08/23/181841 RPT#: [id number] DC DATE: STATUS: ADM IN [facility] [address] [place] [address] END OF REPORT
--- NOTE | 2018-08-23 19:03 | NUR ---
BEDSIDE SHIFT REPORT GIVEN BY DEPARTING RN. PT LAYING IN BED WITH EYES CLOSED. AAOX4. PERRLA. C/O INCISIONAL PAIN. RT IJ CVL SALINE LOCKED. F/C DRAINING TO GRAVITY. SAFETY MEASURES IN PLACE. FRESH WATER PROVIDED. CBIR. WILL CONTINUE TO MONITOR.
--- NOTE | 2018-08-23 19:14 | NUR ---
ASSESSMENT COMPLETE. SEE FLOWSHEET FOR DETAILS.
--- NOTE | 2018-08-23 19:31 | NUR ---
PRN PAIN MED GIVEN. SEE MAR FOR FULL DETAILS.
--- NOTE | 2018-08-23 21:14 | NUR ---
HS MEDS GIVEN. SWALLOWED WITHOUT DIFFICULTY.
--- NOTE | 2018-08-23 23:22 | NUR ---
REASSESSMENT COMPLETE. NO CHANGES NOTED. SAFETY MEASURES IN PLACE. CBIR.
[2018-08-24] VITALS (23 sets, daily range): BP systolic 90–122; BP diastolic 59–74
--- NOTE | 2018-08-24 01:06 | NUR ---
C/O PAIN AND NAUSEA. PRN MEDS GIVEN. SEE MAR FOR DETAILS.
--- NOTE | 2018-08-24 02:58 | NUR ---
REASSESSMENT COMPLETE. NO CHANGES NOTED. ASLEEP SHOWING NO SS OF DISTRESS.
--- NOTE | 2018-08-24 06:11 | NUR ---
COMPLETE BED BATH GIVEN. LINENS CHANGED. GOWN CHANGED. OOB INTO CHAIR. TOLERATED WELL. PRN PAIN MED GIVEN. SEE MAR FOR DETAILS.
[2018-08-24 06:23] LABS: HEMATOCRIT 34.5 % (42.0-54.0); HEMOGLOBIN 11.6 g/dL (13.5-17.5); MCH 33.1 pg (26.0-34.0); MCHC 33.6 g/dL (31.0-37.0); MCV 98.6 fL (80.0-100.0); MEAN PLATELET VOLUME 10.3 fL (7.4-10.4); RBC 3.5 10x6/uL (4.20-6.10); RDW 14.1 % (11.5-14.5)
[2018-08-24 06:28] LABS: WBC 12.5 10x3/uL (4.8-10.8)
[2018-08-24 06:59] LABS: ALBUMIN 2.9 g/dL (3.4-5.0); ALKALINE PHOSPHATASE 38 U/L (46-116); ALT (SGPT) 29 U/L (10-68); BILIRUBIN - TOTAL 0.99 mg/dL (0.2-1.3); CALC OSMOLALITY 279 mosm/kg (275-300); CALCIUM 7.7 mg/dL (8.5-10.1); CARBON DIOXIDE 25.2 mmol/L (21.0-32.0); CHLORIDE - SERUM 104 mmol/L (98-107); CREATININE - SERUM 0.9 mg/dL (0.6-1.3); GLUCOSE 139 mg/dL (74-106); POTASSIUM - SERUM 4.3 mmol/L (3.5-5.1); SODIUM 140 mmol/L (136-145); UREA NITROGEN 11 mg/dL (7-18); eGFR NON AFRICAN AMERICAN 88 mL/min (90-120)
--- NOTE | 2018-08-24 07:00 | NUR ---
REC'D CARE OF PT. UP IN CHAIR. A&O X3.
--- NOTE | 2018-08-24 08:10 | NUR ---
DR. RICH AT BEDSIDE.
--- NOTE | 2018-08-24 08:26 | NUR ---
BREAKFAST TRAY SERVED.
--- NOTE | 2018-08-24 09:50 | NUR ---
DC'D VILLASENOR FROM BLADDER
--- NOTE | 2018-08-24 11:10 | NUR ---
REASSESSMENT COMPLETED PER FLOW SHEET. NO ACUTE CHANGES.
--- NOTE | 2018-08-24 13:00 | NUR ---
DENIES NEEDS. REMAINS UP IN CHAIR. VSS.
--- NOTE | 2018-08-24 13:03 | CN ---
PATIENT NAME:BLAKE MICHELLE EDD MEDICAL RECORD: [id number] : 45 LOCATION:JOHNNYID.CV03 ADMIT DATE: 08/22/18 ACCOUNT: [id number] CONSULTING PHYSICIAN: KAMLA ESPINAL MD REFERRING PHYSICIAN: SEBASTIAN PIERCE MD DATE OF CONSULTATION: 08/22/2018 REASON FOR CONSULTATION: Medical management, postoperative coronary artery bypass grafting, and rheumatoid arthritis. HISTORY OF PRESENT ILLNESS: The patient is a 73-year-old male who is noted to be having increasing exertional chest tightness over the last several weeks. He was referred to Dr. Stein for this reason. An abnormal echocardiogram showing dilated aortic root. He underwent cardiac catheterization on 08/14/2018, revealing proximal LAD 90% stenosis with first diagonal 90% stenosis in the midportion. Circumflex had a 90% stenosis. His LV was upper limits of normal, ejection fraction 45% to 50%. Ascending dilated aortic root, almost 5 cm in diameter with mild aortic insufficiency. He underwent coronary artery bypass graft today by Dr. Sebastian Pierce and Lucila Mckeon. He is postop now and alert. PAST MEDICAL HISTORY: Rheumatoid arthritis, osteoarthritis, amblyopia, history of Espinoza's cyst, left knee, depression, diverticulitis, GERD, IBS, chronic sinusitis, obesity, BPH, and depression. PAST SURGICAL HISTORY: Recent CABG, history of nasal sinus surgery on the left with middle meatal antrostomy, tonsillectomy, cataract extractions OU, and left total knee replacement, recent CABG and left middle meatal antrostomy February. SOCIAL HISTORY: He is single, has 1 son who lives in town. 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 Smoked for 15 years, not in some time. Drinks occasional alcohol, drinks at night. HOME MEDICATIONS: Lexapro 10 mg a day, [place] 5/325 one q.6 hours p.r.n. pain, Ambien 10 mg at bedtime for sleep, Orencia 125 mg per mL injected weekly, MiraLax 17 grams p.o. daily, vitamin B12 1 cc IM every 3 weeks, Plaquenil 200 mg p.o. b.i.d., and fenoprofen 400 mg p.o. 3 capsules daily. ALLERGIES: None known. REVIEW OF SYSTEMS: GENERAL: He has been quite fatigued recently. No recent fever. HEENT: No recent visual change, sinus congestion, sore throat or visual disturbance. CARDIAC: Exertional chest pain walking up a hill. Pain does not radiate. No claudication. RESPIRATORY: No shortness of breath or cough. GASTROINTESTINAL: No nausea, vomiting, change in bowel habits. GENITOURINARY: Nocturia once nightly. ENDOCRINE: Denies polyuria, polydipsia, heat or cold intolerance. NEUROLOGIC: No history of stroke, TIA, vascular headaches, or seizures. PSYCHIATRIC: Admits to depressed mood, usually is worse in the winter months. MUSCULOSKELETAL: Chronic arthralgias in his hands, knees, and low back. CONSULT REPORT [id number] BLAKE MICHELLE EDD PHYSICAL EXAMINATION: VITAL SIGNS: Temperature is 98.6 Fahrenheit, pulse 84 and regular, respirations are 24, blood pressure 116/54, O2 sat 92% on 5 liters. GENERAL: The patient is alert and oriented, immediately postop. EYES: Are clear with Lacri-Lube. MOUTH: Oropharynx unremarkable. NECK: No bruits. CHEST: Distant breath sounds. No wheezes. He has fresh surgical dressing noted. ABDOMEN: Soft. EXTREMITIES: No gross edema. He has some ulnar drift in both hands. Postoperative vein harvesting sites noted. LABORATORY DATA: White count is 5700 with H&H of 13 and 38.2 respectively. Blood sugar is 141. INR is 1. ABG: pH 7.33, pO2 of 86, pCO2 of 38 on 5 liters. Urinalysis is unremarkable. Preoperative chest x-ray is unremarkable. MRI of the abdomen showed a left tight appearing adrenal adenoma. Carotid Doppler study was negative for carotid occlusive disease. ASSESSMENT: 1. Immediately postop 3-vessel coronary artery bypass grafting. 2. Rheumatoid arthritis. 3. Osteoarthritis. 4. Gastroesophageal reflux disease. PLAN: Follow patient postoperatively with you. At this time, resume antidepressant and rheumatoid meds when cleared by CV surgeon. TRANSINT:[id number] Voice Confirmation ID: [id number] DOCUMENT ID: [id number] KAMLA ESPINAL MD at 1303 CC: [id number] DICTATION DATE: 08/22/181809 CARDIO TECH: 08/22/182040 [place] [address]
--- NOTE | 2018-08-24 13:28 | NUR ---
REMAINS UP TO CHAIR. RESTING WITH EYES CLOSED. VSS.
--- NOTE | 2018-08-24 13:56 | NUR ---
UP TO BATHROOM WITH ASSISTANCE WITHOUT DIFICULTY. URINATED. THOUGHT HE NEEDED TO DEFICATE. NO STOOL.
--- NOTE | 2018-08-24 14:55 | NUR ---
REASSESSMENT COMPLETED PER FLOW SHEET. NO ACUTE CHANGES.
--- NOTE | 2018-08-24 16:45 | NUR ---
FAMILY AT BEDSIDE. UP TO BATHROOM. THOUGHT HE NEEDED TO HAVE BM. NO STOOL. BACK TO CHAIR.
--- NOTE | 2018-08-24 17:35 | NUR ---
BACK TO BED FROM CHAIR.VSS.
[2018-08-24 20:00] LABS: MAGNESIUM - SERUM 2.1 mg/dL (1.8-2.4); POTASSIUM - SERUM 4.3 mmol/L (3.5-5.1)
--- NOTE | 2018-08-24 20:10 | NUR ---
DR MATSON INFORMED OF PT STATUS. RHYTHM CHANGE 1925. ORDERS RECEIVED HEMOSTABLE. WILL CONTINUE TO MONITOR.
--- NOTE | 2018-08-24 23:00 | NUR ---
1900 BEDSIDE SHIFT REPORT COMPLETE. ASSUMED CARE OF PATIENT. SEE ASSESSMENT FLOWSHEET. 1926 PT SITTING AT SIDE OF BED. NOTED UNCONTROLLED AFIB PER FLOOR SUPERVISOR. VSS. ASYMPTOMATIC AT THIS TIME. 2100 MEDS GIVEN. SNACK AND FLUIDS OFFERED. 2300 SEE ASSESSMENT FLOWSHEET
[2018-08-25] VITALS (27 sets, daily range): BP systolic 86–110; BP diastolic 51–70
--- NOTE | 2018-08-25 05:04 | NUR ---
0100 TOILETING AND FLUIDS OFFERED. VSS. RESPIRATIONS EVEN AND UNLABORED. DENIES ANY NEEDS AT THIS TIME. 0300 SEE ASSESSMENT FLOWSHEET. 0500 SUBSTERNAL LUCAS DRAIN DRESSING CHANGED PER MD ORDERS. BATH GIVEN AND LINENS CHANGED.
[2018-08-25 05:37] LABS: HEMATOCRIT 29.9 % (42.0-54.0); MCHC 33.4 g/dL (31.0-37.0); MCV 98.7 fL (80.0-100.0); MEAN PLATELET VOLUME 9.8 fL (7.4-10.4); RBC 3.03 10x6/uL (4.20-6.10); RDW 13.9 % (11.5-14.5)
[2018-08-25 05:55] LABS: ALBUMIN 2.5 g/dL (3.4-5.0); ALKALINE PHOSPHATASE 34 U/L (46-116); ALT (SGPT) 23 U/L (10-68); BILIRUBIN - TOTAL 0.38 mg/dL (0.2-1.3); CALC OSMOLALITY 281 mosm/kg (275-300); CALCIUM 7.8 mg/dL (8.5-10.1); CARBON DIOXIDE 29.3 mmol/L (21.0-32.0); CHLORIDE - SERUM 105 mmol/L (98-107); CREATININE - SERUM 0.7 mg/dL (0.6-1.3); GLUCOSE 123 mg/dL (74-106); POTASSIUM - SERUM 4.2 mmol/L (3.5-5.1); PROTEIN - SERUM 5.3 g/dL (6.4-8.2); SODIUM 141 mmol/L (136-145); UREA NITROGEN 12 mg/dL (7-18); eGFR NON AFRICAN AMERICAN > 90 mL/min (90-120)
[2018-08-25 05:59] LABS: PLATELET COUNT 99 10x3/uL (130-400); WBC 8.3 10x3/uL (4.8-10.8)
--- NOTE | 2018-08-25 07:00 | NUR ---
REC'D CARE OF PT. A&O X3. SITTING UP IN CHAIR. REQUESTED EXTRA BLANKET. OBLIGED.
--- NOTE | 2018-08-25 07:56 | NUR ---
BREAKFAST TRAY SERVED.
--- NOTE | 2018-08-25 07:57 | NUR ---
HR FLUCTUATES FORM 80'S TO 140'S.
[2018-08-25 09:09] LABS: PLATELET ESTIMATE DECREASED
--- NOTE | 2018-08-25 09:37 | NUR ---
I CALLED DR. MATSON ABOUT HR IN 140'S AND HYPOTENSION. ORDERS REC'D FOR CORDORONE 150MG BOLUS. And to hold laASIX.
--- NOTE | 2018-08-25 09:41 | NUR ---
BACK TO BED FROM CHAIR WITH ASSISTANCE.
--- NOTE | 2018-08-25 10:11 | NUR ---
CORDORONE BOLUS COMPLETED.
--- NOTE | 2018-08-25 11:05 | NUR ---
REASSESSMENT COMPLETED PER FLOW SHEET. NO ACUTE CHANGES.
--- NOTE | 2018-08-25 13:33 | NUR ---
DR. MATSON AT BEDSIDE. HE HOOKED TEMP PACER UP AND SET AT VVI RATE OF 40 VMA 20. ACTUAL RATE 80, CONTROLLED AFIB. DRSG CHANGED PER ORDERS.
--- NOTE | 2018-08-25 14:39 | NUR ---
RESTING WITH EYES CLOSED. VSS.
--- NOTE | 2018-08-25 15:16 | NUR ---
ON AND OFF OF BEDPAN. NO STOOL.
--- NOTE | 2018-08-25 17:17 | NUR ---
DINNER TRAY SERVED
--- NOTE | 2018-08-25 17:23 | NUR ---
REQUESTED BEDPEN. HAD LARGE SEMIFORMED BROWN STOOL. 100CC URINE. PERICARE PERFORMED.
--- NOTE | 2018-08-25 18:08 | NUR ---
REQUESTED BEDPAN. HAD LARGE BROWN SEMIFORMED STOOL. BATHED AND LINEN CHANGED. PERICARE PERFORMED.
--- NOTE | 2018-08-25 18:37 | NUR ---
REQUESTED BEDPAN. HAD LARGE SEMIFORMED STOOL. BATHED. PERICARE PERFORMED.
--- NOTE | 2018-08-25 18:54 | NUR ---
CONVERTED TO NS RATE OF 78.
--- NOTE | 2018-08-25 19:22 | NUR ---
BEDSIDE SHIFT REPORT GIVEN BY DEPARTING RN. OOB IN BSC WITH ASSIST. IMMEDIATE DIARRHEA. VSS. NSR. SAFETY MEASURES IN PLACE. CBIR.
--- NOTE | 2018-08-25 20:07 | NUR ---
ASSESSMENT COMPLETE. SEE FLOWSHEET FOR DETAILS.
--- NOTE | 2018-08-25 20:52 | NUR ---
HS MEDS GIVEN. TOLERATED WELL.
--- NOTE | 2018-08-25 23:57 | NUR ---
REASSESSMENT COMPLETE. NO CHANGES NOTED.
[2018-08-26] VITALS (22 sets, daily range): BP systolic 87–169; BP diastolic 31–87; Ht 188 cm; Wt 106.1 kg
--- NOTE | 2018-08-26 03:01 | NUR ---
REASSESSMENT COMPLETE. NO CHANGES NOTED.
--- NOTE | 2018-08-26 06:13 | NUR ---
OOB TO BSC. 1 BM NOTED
[2018-08-26 06:24] LABS: ALBUMIN 2.6 g/dL (3.4-5.0); ALKALINE PHOSPHATASE 32 U/L (46-116); ALT (SGPT) 21 U/L (10-68); CALC OSMOLALITY 279 mosm/kg (275-300); CALCIUM 8.1 mg/dL (8.5-10.1); CARBON DIOXIDE 28.7 mmol/L (21.0-32.0); CHLORIDE - SERUM 104 mmol/L (98-107); CREATININE - SERUM 0.8 mg/dL (0.6-1.3); GLUCOSE 119 mg/dL (74-106); POTASSIUM - SERUM 4.2 mmol/L (3.5-5.1); PROTEIN - SERUM 5.6 g/dL (6.4-8.2); SODIUM 140 mmol/L (136-145); UREA NITROGEN 13 mg/dL (7-18); eGFR NON AFRICAN AMERICAN > 90 mL/min (90-120)
[2018-08-26 06:34] LABS: HEMATOCRIT 28.7 % (42.0-54.0); HEMOGLOBIN 9.6 g/dL (13.5-17.5); MCH 32.9 pg (26.0-34.0); MCHC 33.4 g/dL (31.0-37.0); MCV 98.3 fL (80.0-100.0); MEAN PLATELET VOLUME 10.5 fL (7.4-10.4); RBC 2.92 10x6/uL (4.20-6.10); RDW 14.1 % (11.5-14.5); WBC 6.9 10x3/uL (4.8-10.8)
--- NOTE | 2018-08-26 07:00 | NUR ---
REPORT RECEIVED FROM THE OFF GOING RN. SEE ASSESSMENT IN THE PTS FLOW SHEET. PT OOB IN HIS BEDSIDE CHAIR. VSS AT THIS TIME. NSR. RIGHT IJ CVL NOTED. SEE IV FLOW SHEET FOR DETAILS. MIDSTERNAL DRESSING C/D/I. SUBSTERNAL DRESSIG C/D/I. TPM WIRES CONNECTED TO THE TPM. VVI: 40 0.8 SENSITIVITY, VMA 20. LEFT LUCAS DRAIN NOTED WITH SEROUSANGENIOUS DRAINAGED. BULB COMPRSSED. PT C/O OCCATIONAL LEFT SUBSTERNAL PAIN. PRN PERCOCET GIVEN. SEE MAR. RLE HARVEST SITE NOTED CLINICAL QUALITY MANAGER. SITES WELL APPROXIMATED. INSTRUCTED THE PT TO USE HIS IS 10X'S/H. PT PULLS ABOUT 500 TO 750. CALL LIGHT IN REACH. WILL CONT POC.
--- NOTE | 2018-08-26 09:00 | NUR ---
FAMILY AT THE PTS BEDSIDE. VSS. DENIES PAIN AT THIS TIME. CALL LIGHT IN REACH. WILL CONT POC.
--- NOTE | 2018-08-26 10:55 | TEE ---
PATIENT:BLAKE MICHELLE EDD MEDICAL RECORD: [id number] LOCATION:[place] [address] AGE OF PATIENT: 73 ADMISSION DATE: 08/22/18 SEX: M REFERRING PHYSICIAN: INTERPRETING PHYSICIAN: ALEX BONILLA MD TRANSESOPHAGEAL ECHOCARDIOGRAM Date: 08/22/18 NUNU CHARGE Y INDICATIONS: CABG PREMEDICATIONS: PATIENT'S RESPONSE PROCEDURE DOPPLER MEASUREMENTS: LVIT LA PA RA LVOT RVOT Asc. Ao AV Gradient Peak AV Mean AV Area MV Gradient Peak MV Mean MV Area INTERPRETATION: LVd: 5.7 cm LVs: 3.6 cm Doppler: 2-D: COLOR FLOW DOPPLER NORMAL SALINE STUDY: MISCELLANOUS: DIAGNOSIS: PLAN: Harvest Worker Field Crop:Sharon Stein Cuff Stitcher: Belinda GRIMM COMMENTS: DATE OF SERVICE: 08/22/2018 PROCEDURE: Transesophageal echo evaluation of valvular structures during bypass surgery. FINDINGS: 1. Left ventricular chamber size is within normal limits. Left ventricular systolic function is normal. Overall ejection fraction estimated at 60%. 2. Left atrium, right atrium, and right ventricular chamber sizes are within TRANSESOPHAGEAL ECHOCARDIOGRAM REPORT [id number] BLAKE MICHELLE ED normal limits. 3. Valvular structures have normal structure and motion. 4. Doppler interrogation reveals trace mitral regurgitation and mild aortic insufficiency. No other valvular insufficiency or stenosis. 5. No evidence of pericardial effusion or left ventricular thrombus. TRANSINT:[id number] Voice Confirmation ID: [id number] DOCUMENT ID: [id number] at 1055 CC: [id number] DICTATION DATE: 08/22/18 1629 CAMERA REPAIRER: 08/23/18 0242 ADM IN [place] [id number] [place] [address]
--- NOTE | 2018-08-26 14:56 | NUR ---
IV STARTED X1 ATTEMPT TO RIGHT ARM. PATENT. DRESSING C/D/I. RIGHT IJ CENTRAL LINE DC'D PER DR ISRAEL ORDERS. LEFT LUCAS DRAIN REMOVED PER ORDERS. TPM WIRES DISCONNECTED AND WIRES COILED. SUBSTERNAL DRESSING CHANGED AND C/D/I. PT TOLERATED WELL. WILL CONT POC.
--- NOTE | 2018-08-26 19:43 | NUR ---
BEDSIDE SHIFT REPORT GIVEN BY DEPARTING RN. PT OUT OF CHAIR TO BSC USING ASSIST. SLIGHTLY UNSTEADY ON FEET. ONE BM AND VOID NOTED. BACK TO BED AND TUCKED IN. VSS. SAFETY MEASURESIN PLACE. CBIR.
--- NOTE | 2018-08-26 21:00 | NUR ---
HS MEDS GIVEN WITHOUT DIFFICULTY. PRN SLEEPING MED GIVEN PER PT REQUEST.
--- NOTE | 2018-08-26 23:54 | NUR ---
REASSESSMENT COMPLETE. NO CHANGES NOTED. VSS. ASLEEP SHOWING NO SS OF DISTRESS. JO-ANN ANY PAIN OR NEEDS AT THIS TIME. SAFETY MEASURES IN PLACE. CBIR.
[2018-08-27] VITALS (16 sets, daily range): BP systolic 85–123; BP diastolic 53–68
--- NOTE | 2018-08-27 03:52 | NUR ---
REASSESSMENT COMPLETE. NO CHANGES NOTED. VSS. ASLEEP SHOWING NO SS OF DISTRESS.
--- NOTE | 2018-08-27 04:59 | NUR ---
BACK FROM PA AND LAT. TOLERATED VERY WELL. OOB IN CHAIR.
[2018-08-27 07:31] LABS: ALBUMIN 2.8 g/dL (3.4-5.0); ALKALINE PHOSPHATASE 36 U/L (46-116); ALT (SGPT) 22 U/L (10-68); BILIRUBIN - TOTAL 1.06 mg/dL (0.2-1.3); CALC OSMOLALITY 275 mosm/kg (275-300); CALCIUM 8.6 mg/dL (8.5-10.1); CARBON DIOXIDE 27.7 mmol/L (21.0-32.0); CHLORIDE - SERUM 102 mmol/L (98-107); CREATININE - SERUM 0.8 mg/dL (0.6-1.3); GLUCOSE 107 mg/dL (74-106); PROTEIN - SERUM 6.1 g/dL (6.4-8.2); SODIUM 138 mmol/L (136-145); UREA NITROGEN 13 mg/dL (7-18); eGFR NON AFRICAN AMERICAN > 90 mL/min (90-120)
[2018-08-27 07:32] LABS: HEMOGLOBIN 9.6 g/dL (13.5-17.5); MCH 32.7 pg (26.0-34.0); MCHC 33.1 g/dL (31.0-37.0); MCV 98.6 fL (80.0-100.0); MEAN PLATELET VOLUME 10.1 fL (7.4-10.4); RBC 2.94 10x6/uL (4.20-6.10); RDW 13.9 % (11.5-14.5); WBC 6.5 10x3/uL (4.8-10.8)
--- NOTE | 2018-08-27 08:09 | NUR ---
REPORT RECEVIED FROM THE OFF GOING RN. SEE ASSESSMENT IN THE PTS FLOW SHEET. DURING REPORT, THE PT WAS ALREADY ON THE BSC HAVING A BM. PT WAS ASSISTED TO THE BEDSIDE CHAIR. BM AND URINE NOTED IN THE COMMODE. VSS. NSR ON THE MONITOR. PT DENIES PAIN/NEEDS AT THIS TIME. MIDSTERNAL AND SUBSTERNAL DRESSING C/D/I. RLE INCISIONS WELL APPROXIMATED AND SHOW NO S/SX OF INFECTION. BREAKFAST TRAY PROVIDED FOR THE PT. PT INSTRUCTED TO USE HIS IS 10X'S/H. PT PULLING ABOUT 1500 TO 1750 ON HIS IS. CALL LIGHT IN REACH. WILL CONT POC.
--- NOTE | 2018-08-27 09:18 | NUR ---
DR MATSON PAGED R/T PAC'S AND PVC'S. DR MATSON AWARE OF VSS/LABS AND THAT THE PT HAS HAD AMIODORONE 200 THIS AM. N.O FOR AMIODORONE 400MG PO NOW.
--- NOTE | 2018-08-27 10:00 | NUR ---
PT RECEIVED A FULL BEDBATH AND LINEN CHANGE. PT SUBSTERNAL DRESSING CHANGED. PT TOLRATED WELL. VSS AT THIS TIME. CALL LIGHT IN REACH. WILL CONT POC.
--- NOTE | 2018-08-27 12:30 | NUR ---
PT WENT INTO AFIB RATE 100-130. BP STABLE. DR MATSON/NURSES PAGED.
--- NOTE | 2018-08-27 13:07 | NUR ---
DR MATSON/HIS NURSES CALLED BACK AND PUT IN ORDERS FOR AMIODORONE. SEE ORDERS/MAR
--- NOTE | 2018-08-27 13:15 | NUR ---
PHYSCIAL THEARPY AT THE PTS BEDSIDE DOING MINOR EXCERSISES AND DID NOT GO FOR A WALK DUE TO UNCONTROLLED AFIB OF 130.
--- NOTE | 2018-08-27 13:39 | NUR ---
AMIODORONE BOLUS COMPLETED. SEE MAR
--- NOTE | 2018-08-27 15:02 | NUR ---
SPOKE WITH DR ISRAEL NURSE AND UPDATED THAT THE PT IS STILL IN AFIB HOWEVER HIS RATE IS <100. SEE ORDERS.
--- NOTE | 2018-08-27 15:30 | NUR ---
2 FLASKS OF WHAT LOOKS AND SMELLS LIKE WHISKEY. BOTH FLASK WHERE CONFISCATED. I EXPLAINED TO THE PT THAT HE HAS WHISKEY PRESCRIBED TO HIM. "I KNOW. MY SON BROUGHT IT TO ME." PT OK AND STATED HIS SON WILL COME BY LATER AND PRECISION AGRICULTURE TECHNICIAN THE FLASKS.
--- NOTE | 2018-08-27 17:33 | NUR ---
SON AT THE PTS BEDSIDE. CONFISCATED WHISKEY GIVEN TO THE SON.
--- NOTE | 2018-08-27 18:02 | NUR ---
SON PASSED NURSE DESK WHILE LEAVING ICU UNIT AND RAISE A BAG WITH 2 FLASKS IN IT AND INDICATED HE WAS TAKING THEM HOME WITH HIM.
--- NOTE | 2018-08-27 19:12 | NUR ---
REPORT RECEIVED, SHIFT ASSESSMENT COMPLETED PER FLOW SHEET. AAOX4. SITTING UP IN CHAIR. PPP. TELEMETRY MONITORING HR 103, A-FIB. RT FOREARM PIV PATENT, NO SIGNS OF INFECTION OR INFILTRATION. DENIES NEEDS. CALM AND COOPERATIVE. SEE FLOW SHEET FOR COMPLETE ASSESSMENT. CALL LIGHT WITHIN REACH. WILL CONTINUE TO MONITOR.
--- NOTE | 2018-08-27 21:34 | NUR ---
SITTING IN CHAIR, ASSISSTED OUT OF CHAIR TO USE BATHROOM, X1 SOFT BROWN BM NOTED, ASSISSTED TO BED. SCHEDULED MEDS GIVEN, WATER PROVIDED. DENIES OTHER NEEDS. CALL LIGHT WITHIN REACH. WILL CONTINUE TO MONITOR.
--- NOTE | 2018-08-27 23:11 | NUR ---
REASSESSMENT COMPLETED PER FLOW SHEET, SEE FOR DETAILS. PATIENT CONVERTED TO SINUS RHYTHM ON MONITOR AT 2310 HOURS. NO ACUTE DISTRESS NOTED. CALL LIGHT WITHIN REACH. WILL CONTINUE TO MONITOR.
[2018-08-28] VITALS (24 sets, daily range): BP systolic 90–120; BP diastolic 48–71
--- NOTE | 2018-08-28 01:00 | NUR ---
RESTING, NO ACUTE DISTRESS NOTED, WILL CONTINUE TO MONITOR. CALL LIGHT WITHIN REACH.
--- NOTE | 2018-08-28 03:01 | NUR ---
REASSESSMENT COMPLETED PER FLOW SHEET, SEE FOR DETAILS. NO ACUTE DISTRESS NOTED. ASSISSTED OOB TO USE BATHROOM, X1 SOFT BROWN BM. ASSISSTED BACK IN BED. DENIES OTHER NEEDS. CALL LIGHT WITHIN REACH. WILL CONTINUE TO MONITOR.
--- NOTE | 2018-08-28 05:01 | NUR ---
CALL LIGHT ANSWERED, ASSISSTED OOB TO BR. X1 SOFT BROWN BM NOTED. ASSISSTED BACK TO BED. DENIES OTHER NEEDS. WILL CONTINUE TO MONITOR.
--- NOTE | 2018-08-28 06:17 | NUR ---
ASSISSTED OOB TO CHAIR, CALL LIGHT WITHIN REACH. WATER WITH ICE PROVIDED. DENIES OTHER NEEDS. WILL CONTINUE TO MONITOR.
[2018-08-28 06:38] LABS: ALBUMIN 2.6 g/dL (3.4-5.0); ALKALINE PHOSPHATASE 35 U/L (46-116); ALT (SGPT) 22 U/L (10-68); CALC OSMOLALITY 280 mosm/kg (275-300); CHLORIDE - SERUM 106 mmol/L (98-107); CREATININE - SERUM 0.8 mg/dL (0.6-1.3); GLUCOSE 110 mg/dL (74-106); PROTEIN - SERUM 5.5 g/dL (6.4-8.2); SODIUM 140 mmol/L (136-145); UREA NITROGEN 15 mg/dL (7-18); eGFR NON AFRICAN AMERICAN > 90 mL/min (90-120)
[2018-08-28 06:43] LABS: BASOPHILS 0.9 % (0-2); EOSINOPHILS 7.2 % (0-7); HEMATOCRIT 27.4 % (42.0-54.0); HEMOGLOBIN 9.3 g/dL (13.5-17.5); IMMATURE GRANULOCYTES 0.2 % (0-5); LYMPHOCYTES 21.4 % (15-50); MCH 32.7 pg (26.0-34.0); MCHC 33.9 g/dL (31.0-37.0); MONOCYTES 17.2 % (2-11); NEUTROPHILS 53.1 % (40-80); PLATELET COUNT 158 10x3/uL (130-400); RBC 2.84 10x6/uL (4.20-6.10); RDW 13.5 % (11.5-14.5); WBC 5.5 10x3/uL (4.8-10.8)
--- NOTE | 2018-08-28 07:00 | NUR ---
REPORT RECIEVED FROM THE OFF GOING RN. SEE ASSESSMENT IN THE PTS FLOW SHEET. PT NSR ON THE MONIOTR. VSS AT THIS TIME. MIDSTERNAL DRESSING C/D/I. SUBSTERNAL DRESSING C/D/I WITH TPM WIRES COILDED. RLE INCISIONS MAAME AND WELL APPROXIMATED. NO S/SX OF INFECTION NOTED. PT DENIES PAIN/NEEDS AT THIS TIME. PT INSTRUCTED TO USE IS 10X'S/H. PULLS ABOUT [phone] ON HIS IS. BREAKFAST TRAY PROVIDED FOR THE PT. CALL LIGHT IN REACH. WILL CONT POC.
[2018-08-28 07:07] LABS: MCV 96.5 fL (80.0-100.0)
--- NOTE | 2018-08-28 09:00 | NUR ---
PT AMULATED WITH PYSICAL THEARPY ABOUT 500 FEET WITH A NORMAL STEADY GAIT. REMAINED IN NSR. VSS. PT TOLERATED WELL.
--- NOTE | 2018-08-28 11:53 | NUR ---
DR MATSON IN THE UNIT AT THE PTS BEDSIDE. NO N.O AT THIS TIME.
--- NOTE | 2018-08-28 12:06 | NUR ---
Regular diet with 70% average po intake. Pt reports appetite is improved Weight 228lb Pt reports drinking some Ensure Pt reports no questions about nutrition at this time RD following
--- NOTE | 2018-08-28 14:30 | NUR ---
PHSICAL THEARPY AMBULATED WITH THE PT. PT AMBULATED 1000 FEET WITH NO ISSUES. VSS. CALL LIGHT IN REACH. WILL CONT POC.
--- NOTE | 2018-08-28 15:01 | NUR ---
PT RESTING WITH HIS EYES CLOSD WITH NO S/SX OF DISTRESS/DISCOMFORT. REMAINS IN NSR. CALL LIGHT IN REACH. WILL CONT POC.
--- NOTE | 2018-08-28 15:33 | NUR ---
SUBSTERNAL DRESSING CHANGED PER ORDERS. TPM WIRES REMAIN INTACT AND COILED. OLD CT SITES SHOW NO S/SX OF INFECTION. DRESSING APPLIED AND C/D/I. PT TOLERATED WELL. WILL CONT POC.
--- NOTE | 2018-08-28 17:03 | NUR ---
PT ONLY DRANK 2/4 BOTTLES OF PRESCRIBED BOURBON FROM YESTERDAY. PT MADE HIS MIXED DRINK OF WHISKEY AND DIET COKE AND HAD 2 REMAINING BOTTLES LEFT IN HIS ROOM FROM 08/27/18. PT MADE A DRINK FROM THE REMAINING 2 BOTTLES AND HE STATED THAT IS ALL THAT HE WANTS.
--- NOTE | 2018-08-28 19:07 | NUR ---
REPORT RECEIVED, SHIFT ASSESSMENT COMPLETED PER FLOW SHEET. AAOX4. PPP. RT FOREARM PIV PATENT, NO SIGNS OF INFECTION OR INFILTRATION. DENIES NEEDS AT THIS TIME. SEE FLOW SHEET FOR COMPLETE ASSESSMENT. CALL LIGHT WITHIN REACH. WILL CONTINUE TO MONITOR.
--- NOTE | 2018-08-28 21:32 | NUR ---
SCHEDULED MEDS GIVEN, WATER PROVIDED. ASSISSTED HIM TO BED. DENIES OTHER NEEDS. WILL CONTINUE TO MONITOR. CALL LIGHT WITHIN REACH.
--- NOTE | 2018-08-28 23:17 | NUR ---
REASSESSMENT COMPLETED PER FLOW SHEET, SEE FOR DETAILS. NO ACUTE DISTRESS NOTED. DENIES NEEDS. CALL LIGHT WITHIN REACH. WILL CONTINUE TO MONITOR.
[2018-08-29] VITALS (12 sets, daily range): BP systolic 92–122; BP diastolic 53–61
--- NOTE | 2018-08-29 01:00 | NUR ---
DENIES NEEDS. NO ACUTE DISTRESS NOTED. WILL CONTINUE TO MONITOR.
--- NOTE | 2018-08-29 03:01 | NUR ---
REASSESSMENT COMPLETED PER FLOW SHEET, SEE FOR DETAILS. NO ACUTE DISTRESS NOTED. DENIES NEEDS. CALL LIGHT WITHIN REACH.
--- NOTE | 2018-08-29 04:49 | NUR ---
PATIENT OUT OF ROOM FOR AM XR, ACCOMPANIED X2 XR PERSONNEL.
--- NOTE | 2018-08-29 05:01 | NUR ---
PATIENT BACK IN ROOM FROM AM XR. NO ACUTE DISTRESS NOTED. DENIES NEEDS. CALL LIGHT WITHIN REACH.
--- NOTE | 2018-08-29 06:00 | NUR ---
SUBSTERNAL DRESSING CHANGED USING STERILE TECHNIQUE. ASSISSTED OOB TO CHAIR. CALL LIGHT WITHIN REACH.
--- NOTE | 2018-08-29 07:00 | NUR ---
REPORT RECIEVED FROM THE OFF GOING RN. SEE ASSESSMENT IN THE PTS FLOW SHEET. PT SITTING OOB IN HIS BEDSIDE CHAIR. VSS. NSR ON THE MONITOR. PT READING A NEWSPAPER. PT VERBALIZED HE WILL USE HIS IS 10X'S/H. PT PULLS ABOUT [phone]. PT DENIES PAIN. BREAKFAST TRAY PROVIDED FOR THE PT. INSTRUCTED AFTER BREAKFAST, THAT HE NEEDS TO GO FOR A WALK. PT STATED THAT HE WOULD. CALL LIGHT IN REACH. WILL CONT PC.
[2018-08-29 07:04] LABS: BASOPHILS 0.4 % (0-2); HEMATOCRIT 29.7 % (42.0-54.0); IMMATURE GRANULOCYTES 0.5 % (0-5); LYMPHOCYTES 22.6 % (15-50); MCH 32.8 pg (26.0-34.0); MCHC 33.7 g/dL (31.0-37.0); MCV 97.4 fL (80.0-100.0); MEAN PLATELET VOLUME 9.7 fL (7.4-10.4); MONOCYTES 12.3 % (2-11); NEUTROPHILS 56.2 % (40-80); PLATELET COUNT 196 10x3/uL (130-400); RBC 3.05 10x6/uL (4.20-6.10); RDW 13.6 % (11.5-14.5); WBC 7.3 10x3/uL (4.8-10.8)
[2018-08-29 07:33] LABS: ALKALINE PHOSPHATASE 47 U/L (46-116); ALT (SGPT) 25 U/L (10-68); BILIRUBIN - TOTAL 0.97 mg/dL (0.2-1.3); CALC OSMOLALITY 282 mosm/kg (275-300); CALCIUM 8.6 mg/dL (8.5-10.1); CARBON DIOXIDE 28.3 mmol/L (21.0-32.0); CHLORIDE - SERUM 104 mmol/L (98-107); CREATININE - SERUM 0.9 mg/dL (0.6-1.3); GLUCOSE 112 mg/dL (74-106); POTASSIUM - SERUM 3.9 mmol/L (3.5-5.1); PROTEIN - SERUM 6.5 g/dL (6.4-8.2); SODIUM 141 mmol/L (136-145); UREA NITROGEN 15 mg/dL (7-18); eGFR NON AFRICAN AMERICAN 88 mL/min (90-120)
--- NOTE | 2018-08-29 08:56 | NUR ---
PT UP AD [facility] AND AMBULATING AROUND THE UNIT. PT MADE THE "BIG LAP" WITH ME SUPERVISING. PT DENIES SOB. NORMAL STEADY GAIT. VSS. REMAINED IN NSR. WILL CONT POC.
--- NOTE | 2018-08-29 09:41 | NUR ---
SPOKE WITH DANO ABOUT THERAGAN AND HEMOCYTE BOTH BEING ORDERED. HE STATED TO KEEP WHAT EVER DR ESPINAL PRESCRIBED.
--- NOTE | 2018-08-29 10:07 | NUR ---
DR MATSON AT THE PTS BEDSIDE. OK TO DC HOME EARLY AFTERNOON. MONICA BURGOS AT THE PTS BEDSIDE AND PULLED TPM WIRES PER DR MATSON. PT LYING IN BED AND INSTRUCTED TO LAY FLAT FOR 30 MINUTES. PT TOLERATED WELL. PTS SON, AC, CALLED AND MADE AWARE FO DISCHARGE.
[2018-08-29] MEDS ORDERED: LOPRESSOR25 MG PO (11:13)
[2018-08-29] MEDS ORDERED: ASPIRIN EC81 M1 PO (11:13)
[2018-08-29] MEDS ORDERED: AMIODARONE HCL200 MG PO ×2 (11:13→11:28)
[2018-08-29] MEDS ORDERED: THERAGRAN M [BK1 TAB PO (11:14)
[2018-08-29] MEDS ORDERED: LASIX20 MG PO (11:28)
[2018-08-29] MEDS ORDERED: ULTRAM50 MG PO (11:29)
--- NOTE | 2018-08-29 14:43 | NUR ---
PIV DC'D WITH THE CATHETER TIP INTACT. DC INSTRUCTIONS WENT OVER WITH THE PT. DR DELGADO AND DR ESPINAL F/U APPOINTMENTS MADE. PT BELONGINGS ACCOUNTED FOR INCLUDED HOMEMEDS. PT LEFT IN A STABLE CONDTION WITH NO S/SX OF DISTRESS/DISCOMFORT NOTED. SON DRIVING HIS TRUCK.
--- NOTE | 2018-08-29 15:55 | MORECARE ---
CASE MANAGEMENT DISCHARGE SUMMARY PATIENT: BLAKE MICHELLE FER UNIT: [id number] ADM DATE: 08/22/18 AGE: 73 : 45 SEX: M [facility] AUTHOR: DEONTE MCKENZIE PHYSICIAN: REFERRING PHYSICIAN: VANESSA PIERCE MD DATE OF SERVICE: 08/29/18 Discharge Plan Patient Name: BLAKE MICHELLE Facility: [facility]:[place] : 1945 Planned Disposition: Home Anticipated Discharge Date: Discharge Date: 08/29/2018 Expected LOS: Initial Reviewer: [email or web address] Initial Review Date: 08/23/2018 Generated: 08/29/18 4:55 pm Comments DCP- Discharge Planning Updated by [email or web address]: Yvonne Del Rio on 08/29/18 2:[address] Patient Name: BLAKE MICHELLE Encounter No: [id number] : 1945 Primary Insurance: MEDICARE A & B Anticipated DC Date: Planned Disposition: Home External Planned Provider: : D/C IMM EXPLAINED SERVED 08/29/18 @ 1215 DCP follow-up note: Patient and family in agreement with discharge plan. No changes to plan. Case management will follow and assist as needed. Yvonne Del Rio DCP- Discharge Planning Updated by [email or web address]: Yvonne Del Rio on 08/23/18 4:[address] Patient Name: BLAKE MICHELLE Admission Status: Urgent Accout number: [id number] Admission Date: 08-22-2018 : 1945 Admission Diagnosis:ATHSCL HEART DISEASE OF [place] CORONARY ARTERY W/O ANG Attending: VANESSA PIERCE Current LOS: 1 Anticipated DC Date: Planned Disposition: Home Primary Insurance: MEDICARE A & B Discharge Planning Comments: CM met with patient at bedside after obtaining verbal consent. Patient states he plans on returning home after discharge with his son. Patient states he will have family transport him home via private vehicle. Patient denies any discharge needs at this time. Patient may need walk test if still requiring 02. CM will continue to follow and assist as needed for discharge planning / needs. Bottle Blowing Machine Tender: Yvonne Del Rio DCPIA - Discharge Planning Initial Assessment Updated by [email or web address]: Yvonne Del Rio on 08/23/18 6:33 pm * Is the patient Alert and Oriented? Yes * How many steps to enter\exit or inside your home? * PCP * Pharm[facility] * Preadmission Environment Home with Family * ADLs Independent * Equipment Cane * Other Equipment GRAB BARS IN BATH ROOM * List name and contact numbers for known caregivers / representatives who currently or will assist patient after discharge: YOLA MICHELLE - BROTHER - [phone] EBER MICHELLE - SON - [phone] ANJANA RUTH - FRIEND- [phone] * Verbal permission to speak to the caregivers and representatives has been obtained from the patient. No * Community resources currently utilized None * Additional services required to return to the preadmission environment? No * Can the patient safely return to the preadmission environment? Yes * Has this patient been hospitalized within the prior 30 days at any hospital? No Coverage Notice Reviewer: [id number] - Yvonne Del Rio Notice Issued Date-Time: 08/29/2018 15:52 Notice Type: IM Discharge Notice Notice Delivered To: Patient Relationship to Patient: Self Hat Ironer Name: Delivery Method: HAND - Hand Delivered Rosalina Days: Prior Verbal Notification: Recipient Understood Notice: Yes Recipient Signature: Yes Med Rec Note Co-signed by Attending: Coverage Notice Comment: Last DP export: 08/23/18 4:42 pm Patient Name: BLAKE MICHELLE Page [phone] at 1555 All edits/amendments must be made on the electronic document DICTATION DATE: 08/29/181554 READING INTERVENTION TEACHER: ADAM 08/29/18 1551 RPT#: [id number] DC DATE:08/29/18 STATUS: DIS IN [facility] [address] [place] [address] END OF REPORT
--- NOTE | 2018-08-29 16:04 | MORECARE ---
CASE MANAGEMENT DISCHARGE SUMMARY PATIENT: BLAKE MICHELLE FER UNIT: [id number] ADM DATE: 08/22/18 AGE: 73 : 45 SEX: M [facility] AUTHOR: DEONTE MCKENZIE PHYSICIAN: REFERRING PHYSICIAN: VANESSA PIERCE MD DATE OF SERVICE: 08/29/18 Discharge Plan Patient Name: BLAKE MICHELLE Facility: [facility]:[place] : 1945 Planned Disposition: Home Anticipated Discharge Date: Discharge Date: 08/29/2018 Expected LOS: Initial Reviewer: [email or web address] Initial Review Date: 08/23/2018 Generated: 08/29/18 5:04 pm Comments DCP- Discharge Planning Updated by [email or web address]: Yvonne Del Rio on 08/29/18 2:[address] Patient Name: BLAKE MICHELLE Encounter No: [id number] : 1945 Primary Insurance: MEDICARE A & B Anticipated DC Date: Planned Disposition: Home External Planned Provider: : D/C IMM EXPLAINED SERVED 08/29/18 @ 1215 DCP follow-up note: Patient and family in agreement with discharge plan. No changes to plan. Case management will follow and assist as needed. Yvonne Del Rio DCP- Discharge Planning Updated by [email or web address]: Yvonne Del Rio on 08/23/18 4:[address] Patient Name: BLAKE MICHELLE Admission Status: Urgent Accout number: [id number] Admission Date: 08-22-2018 : 1945 Admission Diagnosis:ATHSCL HEART DISEASE OF [place] CORONARY ARTERY W/O ANG Attending: VANESSA PIERCE Current LOS: 1 Anticipated DC Date: Planned Disposition: Home Primary Insurance: MEDICARE A & B Discharge Planning Comments: CM met with patient at bedside after obtaining verbal consent. Patient states he plans on returning home after discharge with his son. Patient states he will have family transport him home via private vehicle. Patient denies any discharge needs at this time. Patient may need walk test if still requiring 02. CM will continue to follow and assist as needed for discharge planning / needs. Show Host: Yvonne Del Rio DCPIA - Discharge Planning Initial Assessment Updated by [email or web address]: Yvonne Del Rio on 08/23/18 6:33 pm * Is the patient Alert and Oriented? Yes * How many steps to enter\exit or inside your home? * PCP * Pharm[facility] * Preadmission Environment Home with Family * ADLs Independent * Equipment Cane * Other Equipment GRAB BARS IN BATH ROOM * List name and contact numbers for known caregivers / representatives who currently or will assist patient after discharge: YOLA MICHELLE - BROTHER - [phone] EBER MICHELLE - SON - [phone] ANJANA RUTH - FRIEND- [phone] * Verbal permission to speak to the caregivers and representatives has been obtained from the patient. No * Community resources currently utilized None * Additional services required to return to the preadmission environment? No * Can the patient safely return to the preadmission environment? Yes * Has this patient been hospitalized within the prior 30 days at any hospital? No Coverage Notice Reviewer: [email or web address] - Yvonne Del Rio Notice Issued Date-Time: 08/29/2018 15:52 Notice Type: IM Discharge Notice Notice Delivered To: Patient Relationship to Patient: Self Online Education Manager Name: Delivery Method: HAND - Hand Delivered Rosalina Days: Prior Verbal Notification: Recipient Understood Notice: Yes Recipient Signature: Yes Med Rec Note Co-signed by Attending: Coverage Notice Comment: Last DP export: 08/29/18 2:55 p Patient Name: BLAKE MICHELLE Page [phone] at 1604 All edits/amendments must be made on the electronic document DICTATION DATE: 08/29/18 160 SPECIAL DISTRIBUTION CLERK: ADAM 08/29/18 160 RPT#: [id number] DC DATE:08/29/18 STATUS: DIS IN [facility] [address] [place] [address] END OF REPORT
== END 2018-08-29 14:44 | disposition home or self-care (01) | DRG 236 ==
LOC: D.SDCHOLD 07:00 → D.CVICU 08-22 05:00 → D.SDCHOLD 08-22 07:00 → D.CVICU 08-22 08:42
PROVIDERS: Internal Medicine Cardiovascular Disease; ADMIT Thoracic Surgery (Cardiothoracic Vascular Surgery); ATTEND Thoracic Surgery (Cardiothoracic Vascular Surgery)
PROC: 021109W Bypass Coronary Artery, Two Arteries from Aorta with Autologous Venous Tissue, Open Approach (ICD-10-PCS; 2018-08-22)
PROC: 06BP4ZZ Excision of Right Saphenous Vein, Percutaneous Endoscopic Approach (ICD-10-PCS; 2018-08-22)
PROC: 5A1221Z Performance of Cardiac Output, Continuous (ICD-10-PCS; 2018-08-22)
PROC: B24BZZ4 Ultrasonography of Heart with Aorta, Transesophageal (ICD-10-PCS; 2018-08-22)
PROC: 02100Z9 Bypass Coronary Artery, One Artery from Left Internal Mammary, Open Approach (ICD-10-PCS; principal; 2018-08-22 07:30)
DX: I25.119 Atherosclerotic heart disease of native coronary artery with unspecified angina pectoris (principal); I08.0 Rheumatic disorders of both mitral and aortic valves; I71.2 Thoracic aortic aneurysm, without rupture; M06.9 Rheumatoid arthritis, unspecified; R07.9 Chest pain, unspecified; R41.0 Disorientation, unspecified; I48.91 Unspecified atrial fibrillation; I48.0 Paroxysmal atrial fibrillation; K59.00 Constipation, unspecified

== ENCOUNTER 2018-08-31 10:40 | Emergency (ER) | payer MEDICARE, OTHER ==
[~2018-08-31] VITALS: Ht 188 cm; Wt 100.0 kg
[~2018-08-31 10:40] MED LIST changes: +AMIODARONE HCL200 MG PO; +ASPIRIN EC81 M1 PO; +IRON PO; +LASIX20 MG PO; +LOPRESSOR25 MG PO; +THERAGRAN M [BK1 TAB PO; +ULTRAM50 MG PO
[2018-08-31 10:48] VITALS: Ht 188 cm; Wt 100.0 kg
[2018-08-31] MEDS ORDERED: METOPROLOL TART25 MG PO (10:51)
[2018-08-31 11:00] LABS: BASOPHILS 0.4 % (0-2); EOSINOPHILS 5.9 % (0-7); IMMATURE GRANULOCYTES 0.8 % (0-5); LYMPHOCYTES 16.9 % (15-50); MCH 32.5 pg (26.0-34.0); MCHC 33.3 g/dL (31.0-37.0); MCV 97.5 fL (80.0-100.0); MEAN PLATELET VOLUME 9.6 fL (7.4-10.4); MONOCYTES 16.4 % (2-11); NEUTROPHILS 59.6 % (40-80); PLATELET COUNT 262 10x3/uL (130-400); RBC 2.77 10x6/uL (4.20-6.10); RDW 13.1 % (11.5-14.5); WBC 8.5 10x3/uL (4.8-10.8)
[2018-08-31 11:22] LABS: APTT 29.7 SECONDS (22.8-39.4); INR 1.12 (0.85-1.17); PROTIME 13.9 SECONDS (11.6-15.0)
[2018-08-31 11:27] LABS: ALBUMIN 2.8 g/dL (3.4-5.0); ALKALINE PHOSPHATASE 52 U/L (46-116); ALT (SGPT) 21 U/L (10-68); CALC OSMOLALITY 272 mosm/kg (275-300); CALCIUM 7.9 mg/dL (8.5-10.1); CARBON DIOXIDE 21.9 mmol/L (21.0-32.0); CHLORIDE - SERUM 101 mmol/L (98-107); GLUCOSE 120 mg/dL (74-106); POTASSIUM - SERUM 4.1 mmol/L (3.5-5.1); PROTEIN - SERUM 6.3 g/dL (6.4-8.2); SODIUM 135 mmol/L (136-145); UREA NITROGEN 17 mg/dL (7-18); eGFR NON AFRICAN AMERICAN 78 mL/min (90-120)
[2018-08-31 11:35] LABS: CKMB 0.5 U/L (0.0-3.6); CREATINE KINASE 65 UL (21-232)
[2018-08-31 11:36] LABS: TROPONIN-I 0.363 ng/mL (0.000-0.060)
[2018-08-31 14:26] VITALS: BP 99/61
== END 2018-08-31 14:27 | disposition home or self-care (01) ==
LOC: D.ER 10:40
PROVIDERS: Emergency Medicine
DX: Z95.1 Presence of aortocoronary bypass graft (principal); I48.92 Unspecified atrial flutter; Z86.79 Personal history of other diseases of the circulatory system; R00.2 Palpitations

== ENCOUNTER → 2018-09-02 14:41 | Outpatient (CLI) | payer MEDICARE, OTHER ==
[2018-08-31 10:48] VITALS: BMI 28.3
[~2018-09-02 14:41] MED LIST changes: +METOPROLOL TART25 MG PO
== END | disposition home or self-care (01) ==
LOC: D.CN 13:00
PROVIDERS: ATTEND Thoracic Surgery (Cardiothoracic Vascular Surgery)
DX: I48.91 Unspecified atrial fibrillation (principal)

== ENCOUNTER → 2018-10-01 13:29 | Outpatient (CLI) | payer MEDICARE, OTHER ==
[2018-10-01 13:48] LABS: HEMATOCRIT 32.1 % (42.0-54.0); HEMOGLOBIN 10.6 g/dL (13.5-17.5); MCH 31.1 pg (26.0-34.0); MCV 94.1 fL (80.0-100.0); MEAN PLATELET VOLUME 8.7 fL (7.4-10.4); RBC 3.41 10x6/uL (4.20-6.10); RDW 14.3 % (11.5-14.5); WBC 5.3 10x3/uL (4.8-10.8)
[2018-10-01 13:57] LABS: CALC OSMOLALITY 275 mosm/kg (275-300); CALCIUM 8.5 mg/dL (8.5-10.1); CARBON DIOXIDE 25.7 mmol/L (21.0-32.0); CHLORIDE - SERUM 104 mmol/L (98-107); CREATININE - SERUM 0.9 mg/dL (0.6-1.3); GLUCOSE 89 mg/dL (74-106); POTASSIUM - SERUM 4.3 mmol/L (3.5-5.1); SODIUM 138 mmol/L (136-145); UREA NITROGEN 14 mg/dL (7-18); eGFR NON AFRICAN AMERICAN 88 mL/min (90-120)
== END | disposition home or self-care (01) ==
LOC: D.LAB 13:29
PROVIDERS: Thoracic Surgery (Cardiothoracic Vascular Surgery)
DX: D64.9 Anemia, unspecified (principal)

== ENCOUNTER → 2019-09-10 10:41 | Outpatient (CLI) | payer MEDICARE, OTHER ==
[2018-08-31 10:48] VITALS: BMI 28.3
== END | disposition home or self-care (01) ==
LOC: D.CT 10:41
PROVIDERS: ATTEND Thoracic Surgery (Cardiothoracic Vascular Surgery)
DX: I25.10 Atherosclerotic heart disease of native coronary artery without angina pectoris (principal); I71.2 Thoracic aortic aneurysm, without rupture

== ENCOUNTER → 2020-01-23 09:45 | Outpatient (CLI) | payer MEDICARE, OTHER ==
[2018-08-31 10:48] VITALS: BMI 28.3
== END | disposition home or self-care (01) ==
LOC: D.HCCECHO 01-20 08:30
PROVIDERS: ATTEND Internal Medicine Cardiovascular Disease
DX: I25.10 Atherosclerotic heart disease of native coronary artery without angina pectoris (principal)

== ENCOUNTER → 2020-09-16 09:07 | Outpatient (CLI) | payer MEDICARE, OTHER ==
[2018-08-31 10:48] VITALS: BMI 28.3
== END | disposition home or self-care (01) ==
LOC: D.CT 09:07
PROVIDERS: ATTEND Thoracic Surgery (Cardiothoracic Vascular Surgery)
DX: I25.10 Atherosclerotic heart disease of native coronary artery without angina pectoris (principal)